=== PATIENT | male | born 1930 | race Caucasian/White ===

== ENCOUNTER 2016-06-20 17:59 | Emergency (ER) | payer OTHER, MEDICARE ==
[~2016-06-20] VITALS: Ht 172.7 cm; Wt 97.1 kg
[~2016-06-20 17:59] MED LIST: ALLOPURINOL; CRESTOR; DETROL LA; DOCUSATE; LASIX; LOVAZA; NEXIUM; NORCO; NOVALOG; OXYCONTIN
[2016-06-20 18:00] VITALS: BP 120/58; PULSE 67; RESP 17; TEMP 97.9; O2SAT 97
[2016-06-20] MEDS ORDERED: DIPH-TET-PERTUS Vaccine 0.5 ML VIAL (ADACEL) I.M. ONE (19:00)
[2016-06-20 20:45] VITALS: BP 120/58; PULSE 67; RESP 17; TEMP 97.9; O2SAT 97
[2016-11-18] MEDS ORDERED: CHOL2000 PO (11:34)
[2016-11-18] MEDS ORDERED: ESOM40CA PO (11:34)
[2016-11-18] MEDS ORDERED: FURO-149 PO (11:34)
[2016-11-18] MEDS ORDERED: POLY17PO4 PO (11:34)
[2016-11-18] MEDS ORDERED: ASCO-339 PO (11:34)
[2016-11-18] MEDS ORDERED: HYDR-2489 PO (11:34)
[2016-11-18] MEDS ORDERED: MULT-1165 PO (11:34)
[2016-11-18] MEDS ORDERED: OXYC10TA71 PO (11:34)
[2016-11-18] MEDS ORDERED: ASPI81TA2 PO (11:34)
[2016-11-18] MEDS ORDERED: ROSU5TAB3 PO (11:34)
[2016-11-18] MEDS ORDERED: INSNLG7030 SUBCUT (11:34)
[2016-11-18] MEDS ORDERED: VITA1CAP PO (11:34)
[2016-11-18] MEDS ORDERED: LIRA0.6P SQ (12:11)
[2016-11-18] MEDS ORDERED: DENO60DI SQ (12:11)
[2016-11-18] MEDS ORDERED: CALC0.258 PO (12:11)
== END 2016-06-20 20:45 | disposition home or self-care (01) ==
LOC: SED 17:59
DX: S61.411A Laceration without foreign body of right hand, initial encounter (principal); E11.9 Type 2 diabetes mellitus without complications; Z91.02 Food additives allergy status; W54.0XXA Bitten by dog, initial encounter; Y93.89 Activity, other specified; Y92.89 Other specified places as the place of occurrence of the external cause; Y99.8 Other external cause status
CPT/HCPCS: 82962; 90715; 99283

== ENCOUNTER 2016-07-27 14:28 | Emergency (ER) | payer OTHER, MEDICARE ==
[~2016-07-27] VITALS: Ht 172.7 cm; Wt 97.5 kg
[2016-07-27 14:40] VITALS: BP 127/71; PULSE 84; RESP 19; TEMP 97.7; O2SAT 94
--- NOTE | 2016-07-27 14:40 | NUR ---
Patient triaged and placed in waiting room. VSS and patient appears in no acute distress at this time. Accompanied by FAMILY, awaiting available bed, and MD notified of need for MSE.
[2016-07-27] MEDS ORDERED: ACETAMINOPHEN 500 MG TABLET PO ONE (16:30)
--- NOTE | 2016-07-27 16:40 | NUR ---
BROUGHT BACK TO BED #7 AND REPORT GIVEN TO DANNY
--- NOTE | 2016-07-27 16:42 | NUR ---
DR. HICKEY AT BEDSIDE EXAMININGTHE PT.
[2016-07-27] MEDS ORDERED: MORPHINE 4 MG/ML INJ. SYRINGE IM ONE (16:45)
--- NOTE | 2016-07-27 16:45 | NUR ---
PT. BROUGHT IN TO THE ER VIA WHEELCHAIR AAOx4 FOR MECHANICAL FALL, STATES THAT HE FELL 2 NIGHTS AGO AND HAS BEEN EXPERIENCING BACK PAIN AND PAIN IN HIS LEFT HAND STATES PAIN 02/24, NO OTHER COMPLAINTS, AT BEDSIDE
--- NOTE | 2016-07-27 17:15 | NUR ---
TAKEN TO RADIOLOGY VIA WHEELCHAIR
--- NOTE | 2016-07-27 17:30 | NUR ---
PT. BACK FROM RADIOLOGY VIA WHEELCHAIR
--- NOTE | 2016-07-27 18:33 | NUR ---
PT. SITTING IN HIS WHEELCHAIR COMFORTABLY, STATES NO PAIN
[2016-07-27 18:50] VITALS: BP 121/71; PULSE 66; RESP 17; TEMP 98.5
--- NOTE | 2016-07-27 18:50 | NUR ---
Patient given written and verbal discharge instructions and verbalizes understanding. ER MD dr. andrea discussed with patient the results and treatment provided. Patient in stable condition. ID arm band removed. no Rx given. Patient educated on pain management and to follow up with PMD. Pain Scale 0/10 Opportunity for questions provided and answered.
[2016-07-27 19:34] VITALS: O2SAT 99
--- NOTE | 2016-07-28 12:13 | NUR ---
DR IVY CALLED TO SPEAK WITH DR CEE, DR CEE ATTEMPTED TO CALL PT TWICE AND LEFT TWO MESSAGES FOR PT TO RETURN TO ER. AWAITING TO HEAR BACK FROM PT.
--- NOTE | 2016-07-28 17:31 | NUR ---
ATTEMPTED TO CALL AND LEFT MESSAGE ON ANSWERING MACHINE. [phone]
--- NOTE | 2016-07-28 19:05 | NUR ---
INFORMATION GIVEN TO ANABELLA FOR FOLLOW UP
--- NOTE | 2016-07-28 21:11 | NUR ---
Called [facility] department at [phone] to help us reach patient, spoke with Anabel. Requested her to call us back for any update.
--- NOTE | 2016-07-28 21:52 | NUR ---
[facility] department called back for further information and pt's update
--- NOTE | 2016-07-28 22:05 | NUR ---
Pt's family/ Liliam called back and was told to come back and discuss CT result with ER
[2016-11-18] MEDS ORDERED: CHOL2000 PO (11:34)
[2016-11-18] MEDS ORDERED: HYDR-2489 PO (11:34)
[2016-11-18] MEDS ORDERED: ESOM40CA PO (11:34)
[2016-11-18] MEDS ORDERED: ASCO-339 PO (11:34)
[2016-11-18] MEDS ORDERED: POLY17PO4 PO (11:34)
[2016-11-18] MEDS ORDERED: INSNLG7030 SUBCUT (11:34)
[2016-11-18] MEDS ORDERED: FURO-149 PO (11:34)
[2016-11-18] MEDS ORDERED: MULT-1165 PO (11:34)
[2016-11-18] MEDS ORDERED: OXYC10TA71 PO (11:34)
[2016-11-18] MEDS ORDERED: VITA1CAP PO (11:34)
[2016-11-18] MEDS ORDERED: ASPI81TA2 PO (11:34)
[2016-11-18] MEDS ORDERED: ROSU5TAB3 PO (11:34)
[2016-11-18] MEDS ORDERED: LIRA0.6P SQ (12:11)
[2016-11-18] MEDS ORDERED: CALC0.258 PO (12:11)
[2016-11-18] MEDS ORDERED: DENO60DI SQ (12:11)
== END 2016-07-27 18:50 | disposition home or self-care (01) ==
LOC: SED 14:28
DX: S39.012A Strain of muscle, fascia and tendon of lower back, initial encounter (principal); E11.9 Type 2 diabetes mellitus without complications; Y93.89 Activity, other specified; W01.0XXA Fall on same level from slipping, tripping and stumbling without subsequent striking against object, initial encounter; Y92.89 Other specified places as the place of occurrence of the external cause; Y99.8 Other external cause status; Z91.02 Food additives allergy status
CPT/HCPCS: 71250; 73140; 74176; 96372; 99284; J2270

== ENCOUNTER 2016-07-28 22:32 | Emergency (ER) | payer OTHER, MEDICARE ==
[~2016-07-28] VITALS: Ht 172.7 cm; Wt 97.5 kg
[2016-07-28 22:32] VITALS: BP_SYST 144
--- NOTE | 2016-07-28 22:40 | NUR ---
Patient to ER bed 6 to gown for evaluation. Side rails up. Report given to Lady ROMANO.
--- NOTE | 2016-07-28 22:44 | NUR ---
Patient returns to ER. Today patient was contacted by [facility] ER staff and ER MD to return to ER to discuss imaging results from 1 day ago. 3 days ago patient fell backwards injuring his back. At this time patient is using a walker, states that he is taking oxycontin for pain, C/O 5/10 pain at rest and 10/10 when walking. AAOx4, unlabored breathing, denies numbness/tingling of legs, no signs of acute distress.
--- NOTE | 2016-07-28 23:06 | NUR ---
ER MD Cruz at bedside for evaluation
[2016-07-28 23:10] VITALS: BP_SYST 134
--- NOTE | 2016-07-28 23:27 | NUR ---
Patient given written and verbal discharge instructions and verbalizes understanding. ER MD Cruz discussed with patient the results and treatment provided. Given copies of tests performed in ER. Patient in stable condition. ID arm band removed. Patient educated on pain management and to follow up with PMD. Pain Scale 0/10. Opportunity for questions provided and answered.
== END 2016-07-28 23:10 | disposition home or self-care (01) ==
LOC: SED 22:32
DX: S22.079A Unspecified fracture of T9-T10 vertebra, initial encounter for closed fracture (principal); E11.9 Type 2 diabetes mellitus without complications; Z91.02 Food additives allergy status; W01.0XXA Fall on same level from slipping, tripping and stumbling without subsequent striking against object, initial encounter; Y93.89 Activity, other specified; Y99.8 Other external cause status; Y92.89 Other specified places as the place of occurrence of the external cause
CPT/HCPCS: 99281

== ENCOUNTER 2016-12-27 07:48 | Emergency (ER) | payer OTHER, MEDICARE ==
[~2016-12-27] VITALS: Ht 172.7 cm; Wt 90.7 kg
[2016-12-27 07:48] VITALS: BP_SYST 145
[~2016-12-27 07:48] MED LIST changes: -ALLOPURINOL; +ASCO-339 PO; +ASPI81TA2 PO; +CALC0.258 PO; +CHOL2000 PO; -CRESTOR; +DENO60DI SQ; -DETROL LA; -DOCUSATE; +ESOM40CA PO; +HYDR-2489 PO; +INSNLG7030 SUBCUT; -LASIX; -LOVAZA; +MULT-1165 PO; -NEXIUM; -NORCO; -NOVALOG; +OXYC10TA71 PO; -OXYCONTIN; +POLY17PO4 PO; +ROSU5TAB3 PO; +VITA1CAP PO
[2016-12-27 08:41] LABS: BASOPHILS % (AUTO) 0.1 % (0.0-2.0); EOSINOPHILS # (AUTO) 0.1 K/uL (0.0-0.4); EOSINOPHILS % (AUTO) 0.6 % (0.0-4.0); HEMATOCRIT 36.5 % (36-54); HEMOGLOBIN 11.7 g/dL (14.0-18.0); LYMPHOCYTES % (AUTO) 12.2 % (20.5-51.5); MEAN CORPUSCULAR HEMOGLOBIN 30 pg (27-31); MEAN CORPUSCULAR HGB CONC 32 % (32-36); MEAN CORPUSCULAR VOLUME 93 fL (79.0-98.0); MONOCYTES # (AUTO) 0.5 K/uL (0.0-1.0); MONOCYTES % (AUTO) 5.5 % (1.7-9.3); NEUTROPHILS # (AUTO) 6.8 K/uL (1.8-7.7); NEUTROPHILS % (AUTO) 81.6 % (40.0-70.0); PLATELET COUNT (AUTO) 164 K/uL (130-430); RED BLOOD CELL COUNT(AUTO) 3.91 MIL/uL (4.2-6.2); RED CELL DISTRIBUTION WIDTH 14.7 % (9.0-15.0); WHITE BLOOD COUNT (AUTO) 8.4 K/uL (4.8-10.8)
[2016-12-27 08:53] LABS: ANION GAP 5 (5-15); CALCIUM 8.8 mg/dL (8.4-11.0); CHLORIDE 104 mmol/L (98-107); CREATININE 2.27 mg/dL (0.55-1.30); GLUCOSE 90 mg/dL (70-99); POTASSIUM 4.3 mmol/L (3.5-5.1); SODIUM SERUM 144 mmol/L (136-145); UREA NITROGEN, BLOOD 29 mg/dL (8-21)
[2016-12-27 08:55] LABS: PROTHROMBIN TIME 10.4 SECS (9.5-12.5)
[2016-12-27 09:09] LABS: ALANINE AMINOTRANSFERASE 18 U/L (12-78); ALBUMIN 3.3 g/dL (3.4-4.8); ASPARTATE AMINOTRANSFERASE 18 U/L (10-37); FREE T4 (FREE THYROXINE) 0.8 ng/dL (0.6-1.6); TOTAL BILIRUBIN 0.4 mg/dL (0.0-1.0); TOTAL PROTEIN, SERUM 6.5 g/dL (6.4-8.3)
[2016-12-27] MEDS ORDERED: CYAN100067 PO (09:10)
[2016-12-27] MEDS ORDERED: MULT PO (09:10)
[2016-12-27] MEDS ORDERED: FURO-149 PO (09:10)
[2016-12-27] MEDS ORDERED: CLON0.5T4 PO (09:10)
[2016-12-27] MEDS ORDERED: VITD2000 PO (09:10)
[2016-12-27] MEDS ORDERED: MELA3TAB43 PO (09:10)
[2016-12-27] MEDS ORDERED: DENO60DI SQ (09:10)
[2016-12-27] MEDS ORDERED: LIDP TP (09:10)
[2016-12-27] MEDS ORDERED: ASCO500T20 PO (09:10)
[2016-12-27] MEDS ORDERED: POLY17PO4 PO (09:10)
[2016-12-27] MEDS ORDERED: LIRA0.6P SQ (09:10)
[2016-12-27 09:22] LABS: ALCOHOL, BLOOD < 3 mg/dL (<10)
[2016-12-27 09:45] LABS: BILIRUBIN,URINE NEGATIVE (NEGATIVE); BLOOD, URINE NEGATIVE (NEGATIVE); CLARITY/URINE CLEAR (CLEAR); COLOR,URINE YELLOW (YELLOW); GLUCOSE,URINE NEGATIVE (NEGATIVE); KETONES,URINE NEGATIVE (NEGATIVE); LEUKOCYTE ESTERASE ,URINE NEGATIVE (NEGATIVE); NITRITE, URINE NEGATIVE (NEGATIVE); PH,URINE 6.5 (5.0-8.0); PROTEIN URINE 1+ (NEGATIVE); UROBILINOGEN,URINE 0.2 (0.2-1.0)
[2016-12-27 09:55] LABS: BARBITURATE, URINE NEGATIVE (NEG <=200); BENZODIAZEPINE, URINE NEGATIVE (NEG <=150); CANNABINOID, URINE NEGATIVE (NEG <=50); COCAINE, URINE NEGATIVE (NEG <=150); METHAMPHETAMINES SCREEN,URINE NEGATIVE (NEG <=500); OPIATE, URINE POSITIVE (NEG <=100); PHENCYCLIDINE SCREEN,URINE NEGATIVE (NEG <=25); UR TRICYCLIC ANTIDEPRESSANTS NEGATIVE (NEG <=300); URINE AMPHETAMINE NEGATIVE (NEG <=500); URINE METHADONE NEGATIVE (NEG <=200); URINE OXYCODONE SCREEN POSITIVE (NEG <=100); URINE PROPOXYPHENE SCREEN NEGATIVE (NEG <=300)
[2016-12-27 10:09] LABS: BACTERIA,URINE RARE /HPF (None Seen); FINE GRANULAR CASTS,URINE 0-10 /LPF (None Seen); RBC,URINE NONE SEEN /HPF (0-3); WBC,URINE NONE SEEN /HPF (0-3)
[2016-12-27 10:10] LABS: MUCUS,URINE None Seen /LPF (None Seen)
[2016-12-27 11:14] VITALS: BP_SYST 137
[2016-12-27] MEDS ORDERED: INSULIN REGULAR, HUMAN 10 UNITS/0.1 ML INJ ONE (16:32)
== END 2016-12-27 11:14 | disposition home or self-care (01) ==
LOC: SED 07:48
DX: E11.649 Type 2 diabetes mellitus with hypoglycemia without coma (principal); J44.9 Chronic obstructive pulmonary disease, unspecified; Z85.828 Personal history of other malignant neoplasm of skin; Z91.041 Radiographic dye allergy status; Z79.4 Long term (current) use of insulin; Z79.899 Other long term (current) drug therapy
CPT/HCPCS: 36415; 71010; 74000; 80053; 80307; 81000; 82140; 83605; 83880; 84439; 84484; 85025; 85610; 87040; 93005; 99285; G0482; J1815; 82962

== ENCOUNTER 2018-03-26 14:51 | Emergency (ER) | payer OTHER, MEDICARE ==
[~2018-03-26] VITALS: Ht 157.5 cm; Wt 95.7 kg
[~2018-03-26 14:51] MED LIST changes: -ASCO-339 PO; +ASCO500T20 PO; +ASPI-1155 PO; -ASPI81TA2 PO; -CHOL2000 PO; +CLON0.5T12 PO; +CYAN100010 PO; +FURO-149 PO; +LIDP TP; +LIRA0.6P SQ; +MELA3TAB69 PO; +MULT PO; +OXYC10TA56 PO; -OXYC10TA71 PO; +ROSU5TAB PO; -ROSU5TAB3 PO; +VITD2000 PO
--- NOTE | 2018-03-26 14:55 | NUR ---
Pt wheeled to bed 5
[2018-03-26 14:56] VITALS: BP_SYST 150
--- NOTE | 2018-03-26 15:05 | NUR ---
Patient brought via wheelchair accompanied by complaining of an bump on left scrotum for the alst 2 years that now has worsened. Reports that the bump was draining pus. Denies any fevers or chills. Denies any pain at this time. No complaints/injuries per patient or as noted. Will continue to monitor.
--- NOTE | 2018-03-26 15:17 | NUR ---
ER Dr. Quan at bedside examining patient.
[2018-03-26] MEDS ORDERED: ROSU10TA PO (15:18)
[2018-03-26] MEDS ORDERED: [UNRECOGNIZED DRUG - REMARK] (15:18)
[2018-03-26] MEDS ORDERED: Vit D PO (15:18)
[2018-03-26] MEDS ORDERED: MULT-1198 PO (15:18)
[2018-03-26] MEDS ORDERED: DENO60DI SQ (15:18)
[2018-03-26] MEDS ORDERED: INSNLG7030 SUBCUT ×2 (15:18)
[2018-03-26] MEDS ORDERED: Vit C (15:18)
[2018-03-26] MEDS ORDERED: ESOM40CA PO (15:18)
--- NOTE | 2018-03-26 15:29 | NUR ---
Medicated per MD orders. Will cont to monitor
[2018-03-26] MEDS ORDERED: CLINDAMYCIN PHOSPHATE 300 MG/2 ML VIAL IM ONE (15:30)
[2018-03-26 15:55] VITALS: BP_SYST 142
--- NOTE | 2018-03-26 15:55 | NUR ---
Patient given written and verbal discharge instructions and verbalizes understanding. ER MD discussed with patient the results and treatment provided. Patient in stable condition. ID arm band removed. Rx of Clindamycin given. Patient educated on pain management and to follow up with PMD. Pain Scale 0/10 Opportunity for questions provided and answered. Medication side effect fact sheet provided.
== END 2018-03-26 15:55 | disposition home or self-care (01) ==
LOC: SED 14:51
DX: N45.4 Abscess of epididymis or testis (principal); R03.0 Elevated blood-pressure reading, without diagnosis of hypertension; E11.9 Type 2 diabetes mellitus without complications; Z85.828 Personal history of other malignant neoplasm of skin; Z85.528 Personal history of other malignant neoplasm of kidney; Z91.041 Radiographic dye allergy status; Z79.82 Long term (current) use of aspirin; Z79.899 Other long term (current) drug therapy
CPT/HCPCS: 96372; 99283; J3490

== ENCOUNTER 2019-05-09 12:30 | Inpatient (IN) | payer OTHER, MEDICARE ==
[~2019-05-09] VITALS: Ht 175.3 cm; Wt 88.8 kg
[~2019-05-09 12:30] MED LIST changes: -ASCO500T20 PO; -CLON0.5T12 PO; +ETOMIDATE 20 MG/ 10 ML VIAL (AMIDATE) IVP ONE; -HYDR-2489 PO; +HYDR-4274 PO; -MELA3TAB69 PO; -MULT PO; -MULT-1165 PO; +MULT-1198 PO; +ROSU10TA2 PO; -VITA1CAP PO; -VITD2000 PO; +Vit C; +Vit D PO; +[UNRECOGNIZED DRUG - REMARK]
[2019-05-09 12:42] VITALS: BP_SYST 149
--- NOTE | 2019-05-09 12:54 | NUR ---
Patient to ER bed 05 to gown for evaluation. Side rails up.
--- NOTE | 2019-05-09 12:55 | NUR ---
Patient is awake, alert, and oriented x4. His is at bedside. Patient is reports falling out of his bed last night. Patient presents with abrasions to his right leg, right elbow, right sided pain, ronchi bilaterally.
[2019-05-09] MEDS ORDERED: POLY17PO4 PO (13:14)
[2019-05-09] MEDS ORDERED: DENO60DI SQ (13:14)
[2019-05-09] MEDS ORDERED: LIDOINT TP (13:14)
[2019-05-09] MEDS ORDERED: NALO12.5 PO (13:14)
[2019-05-09] MEDS ORDERED: INSNLG7030 SUBCUT ×2 (13:14)
[2019-05-09] MEDS ORDERED: VITD2000 PO (13:14)
[2019-05-09] MEDS ORDERED: LIRA0.6P SQ (13:14)
[2019-05-09] MEDS ORDERED: MULT-1198 PO (13:14)
[2019-05-09] MEDS ORDERED: HYDR-4274 PO (13:14)
[2019-05-09] MEDS ORDERED: ASCO500T20 PO (13:14)
[2019-05-09] MEDS ORDERED: FLOEARD LEFT EYE (13:14)
[2019-05-09] MEDS ORDERED: CANN100S PO (13:14)
[2019-05-09] MEDS ORDERED: ASPI-1153 PO (13:14)
[2019-05-09] MEDS ORDERED: FURO-149 PO (13:14)
[2019-05-09] MEDS ORDERED: ESOM40CA PO (13:14)
[2019-05-09] MEDS ORDERED: OXYC10TA56 PO (13:14)
[2019-05-09] MEDS ORDERED: CYAN100010 PO (13:14)
[2019-05-09] MEDS ORDERED: CALC0.253 PO (13:14)
[2019-05-09] MEDS ORDERED: ROSU10TA2 PO (13:14)
[2019-05-09] MEDS ORDERED: [UNRECOGNIZED DRUG - OTHER] PO (13:14)
--- NOTE | 2019-05-09 13:14 | NUR ---
Medication reconciliation completed with information provided by patient. Any prior medication reconciliation on file was reviewed and corrected.
[2019-05-09 14:00] LABS: ANION GAP 5 (5-15); CALCIUM 8.6 mg/dL (8.4-11.0); CHLORIDE 101 mmol/L (98-107); CREATININE 2.51 mg/dL (0.55-1.30); GLUCOSE 154 mg/dL (70-99); POTASSIUM 4.2 mmol/L (3.5-5.1); SODIUM SERUM 140 mmol/L (136-145); UREA NITROGEN, BLOOD 36 mg/dL (8-21)
[2019-05-09 14:04] LABS: BASOPHILS % (AUTO) 0.2 % (0.0-2.0); EOSINOPHILS # (AUTO) 0.1 K/uL (0.0-0.4); EOSINOPHILS % (AUTO) 0.4 % (0.0-4.0); HEMATOCRIT 39.4 % (36-54); HEMOGLOBIN 12.7 g/dL (14.0-18.0); LYMPHOCYTES # (AUTO) 1.6 K/uL (1.0-5.5); LYMPHOCYTES % (AUTO) 12.3 % (20.5-51.5); MEAN CORPUSCULAR HEMOGLOBIN 32 pg (27-31); MEAN CORPUSCULAR HGB CONC 32 % (32-36); MEAN CORPUSCULAR VOLUME 99 fL (79.0-98.0); MONOCYTES # (AUTO) 1.4 K/uL (0.0-1.0); NEUTROPHILS # (AUTO) 9.6 K/uL (1.8-7.7); PLATELET COUNT (AUTO) 220 K/uL (130-430); RED BLOOD CELL COUNT(AUTO) 3.98 MIL/uL (4.2-6.2); RED CELL DISTRIBUTION WIDTH 13.6 % (9.0-15.0); WHITE BLOOD COUNT (AUTO) 12.7 K/uL (4.8-10.8)
[2019-05-09 14:07] LABS: ALANINE AMINOTRANSFERASE 20 U/L (12-78); ALBUMIN 2.7 g/dL (3.4-4.8); ASPARTATE AMINOTRANSFERASE 16 U/L (10-37); LIPASE 221 U/L (73-393); TOTAL BILIRUBIN 0.3 mg/dL (0.0-1.0)
[2019-05-09] MEDS ORDERED: OSELTAMIVIR PHOSPHATE 75 MG CAPSULE PO ONE (14:30)
[2019-05-09] MEDS ORDERED: AZITHROMYCIN 250 MG TABLET PO ONE (14:30)
[2019-05-09] MEDS ORDERED: cefTRIAXone 1 GM IVPB PREMIX 50 ML IV ONE (14:30)
--- NOTE | 2019-05-09 14:47 | NUR ---
Waiting for second blood culture to be drawn prior to IV antibiotic administration.
--- NOTE | 2019-05-09 14:54 | NUR ---
Patient will be admitted to care of Dr. Briggs. Admitted to telemetry unit. Waiting for room assignment from ROSALINA Maldonado. Belongings list completed. Complete and up to date summary report printed. SBAR report to be given at bedside with opportunity for questions.
--- NOTE | 2019-05-09 14:55 | NUR ---
Patient is respiratory distress, patient placed on NRB Mask at 15LPM. Dr. Coates notified.
[2019-05-09] MEDS ORDERED: ETOMIDATE 20 MG/ 10 ML VIAL (AMIDATE) IVP ONE (15:15)
[2019-05-09] MEDS ORDERED: ROCURONIUM BROMIDE 10 MG/ML (ZEMURON) IV ONE (15:15)
--- NOTE | 2019-05-09 15:16 | NUR ---
Pt moved to bed 01
--- NOTE | 2019-05-09 15:35 | NUR ---
T NOTES Pt was intubated w/ 8.0 ETT secured at 24cm lipline. Bilateral B.S/chest rise noted. CO2 detector changed to yellow. Placed on vent AC 13 500 100% +[address] Coates. Pt. appears to tolerate settings well. Alarms are set and audible. Will monitor pt.
--- NOTE | 2019-05-09 15:35 | NUR ---
Patient not known to be of DNR status. Patient medicated with 20 mg of Etomidate for sedation prior to placement of ET tube and 50mg roconium. Respiratory therapy at bedside prior to placement. Size 8 ET tube placed by 24 at [facility] by Dr. Coates. Cuff inflated with 10 cc air. Auscultation of breath sounds over bilateral chest wall. ET tube secured with strap. O2 sats 100% pulse ox. PCXR ordered to check tube placement.
--- NOTE | 2019-05-09 15:43 | NUR ---
Patient will be admitted to care of Dr. Briggs. Admitted to ICU unit. Waiting for room assignment. Belongings list completed. Complete and up to date summary report printed. SBAR report to be given at bedside with opportunity for questions.
[2019-05-09] MEDS ORDERED: AZITHROMYCIN 500 MG in NS 250 ML IV ONE (15:45)
[2019-05-09] MEDS: PROPOFOL DRIP 100 ML IV PRN (15:58)
[2019-05-09] MEDS ORDERED: SODIUM CL 3% FOR INHALATION 15 ML VIAL.NEB INH ONE (16:00)
--- NOTE | 2019-05-09 16:05 | NUR ---
Diprivan titrated to 7mcg/kg/hr. ROSALINA Felder witnessed.
--- NOTE | 2019-05-09 16:10 | NUR ---
Diprivan titrated to 9mcg/kg/hr. ROSALINA Felder witnessed.
--- NOTE | 2019-05-09 16:10 | NUR ---
RT NOTEs RT Gianluca titrated FIO2 to 50% per ABG results
[2019-05-09] MEDS ORDERED: AZITHROMYCIN 500 MG/VIAL (ZITHROMAX) IV ONE (16:15)
--- NOTE | 2019-05-09 16:15 | NUR ---
Diprivan titrated to 11mcg/kg/hr. ROSALINA Felder witnessed.
--- NOTE | 2019-05-09 16:20 | NUR ---
Diprivan titrated to 13mcg/kg/hr. ROSALINA Felder witnessed.
--- NOTE | 2019-05-09 16:25 | NUR ---
Diprivan titrated to 15mcg/kg/hr. ROSALINA Felder witnessed.
--- NOTE | 2019-05-09 16:28 | NUR ---
Patient transported to radiology via gurney, accompanied by forestry technician, RN, RT.
[2019-05-09 16:32] LABS: BILIRUBIN,URINE NEGATIVE (NEGATIVE); BLOOD, URINE NEGATIVE (NEGATIVE); COLOR,URINE YELLOW (YELLOW); GLUCOSE,URINE NEGATIVE (NEGATIVE); KETONES,URINE NEGATIVE (NEGATIVE); LEUKOCYTE ESTERASE ,URINE NEGATIVE (NEGATIVE); NITRITE, URINE NEGATIVE (NEGATIVE); PROTEIN URINE 2+ (NEGATIVE); UROBILINOGEN,URINE 0.2 (0.2-1.0)
--- NOTE | 2019-05-09 16:40 | NUR ---
RT NOTES Transported pt to CT bagging w/ 100% O2 via ambubag to ETT. ETT remains secure. Pt. back on vent w/ same settings.
--- NOTE | 2019-05-09 16:42 | NUR ---
Returned from radiology, back to [facility].
--- NOTE | 2019-05-09 16:45 | NUR ---
Diprivan titrated to 17mcg/kg/hr. ROSALINA Felder witnessed.
[2019-05-09 16:46] LABS: CLARITY/URINE SLIGHTLY HAZY (CLEAR)
--- NOTE | 2019-05-09 16:50 | NUR ---
Diprivan titrated to 19mcg/kg/hr. ROSALINA Felder witnessed.
--- NOTE | 2019-05-09 16:55 | NUR ---
Diprivan titrated to 21mcg/kg/hr. ROSALINA Felder witnessed.
--- NOTE | 2019-05-09 17:00 | NUR ---
Diprivan titrated to 23mcg/kg/hr. ROSALINA Felder witnessed.
[2019-05-09 17:02] LABS: BACTERIA,URINE FEW /HPF (None Seen); COARSE GRANULAR CASTS,URINE 0-10 /LPF (None Seen); FINE GRANULAR CASTS,URINE 0-10 /LPF (None Seen); MUCUS,URINE 1+ /LPF (None Seen); RBC,URINE NONE SEEN /HPF (0-3); WBC,URINE 0-3 /HPF (0-3)
--- NOTE | 2019-05-09 17:05 | NUR ---
Diprivan titrated to 26mcg/kg/hr. ROSALINA Felder witnessed.
--- NOTE | 2019-05-09 17:10 | NUR ---
Diprivan titrated to 30mcg/kg/hr. ROSALINA Felder witnessed.
[2019-05-09 17:26] LABS: NEUTROPHILS % (AUTO) 76.1 % (40.0-70.0)
[2019-05-09] MEDS ORDERED: D5W 1,000 ML IV PRN (17:49)
--- NOTE | 2019-05-09 17:55 | NUR ---
Diprivan titrated to 35mcg/kg/min, ROSALINA Felder witnessed.
--- NOTE | 2019-05-09 17:58 | NUR ---
Patient's , Liliam, wishes to be called at with updates if she is not at bedside.
[2019-05-09] MEDS ORDERED: ONDANSETRON HCL 4 MG/2 ML VIAL IVP PRN (18:00)
[2019-05-09] MEDS ORDERED: GLUCOSE 15 GM GEL (in 37.5 GM TUBE) PO PRN (18:00)
[2019-05-09] MEDS ORDERED: LORazepam 2 MG/ML VIAL IVP PRN (18:00)
[2019-05-09] MEDS ORDERED: NOREPINEPHRINE BITARTRATE 4 MG in NS 246 ML IV PRN (18:15)
--- NOTE | 2019-05-09 18:25 | NUR ---
Levophed 4mg/250mL NS started at 2mcg/min due to low bp.
[2019-05-09] MEDS ORDERED: NOREPINEPHRINE 4 MG/4 ML VIAL IV ONE (18:29)
--- NOTE | 2019-05-09 18:30 | NUR ---
Levophed increased to 4mcg/min. ROSALINA Felder witnessed.
--- NOTE | 2019-05-09 18:55 | NUR ---
Dr. Beal, licensed surveyor, in to see patient.
--- NOTE | 2019-05-09 19:34 | NUR ---
Report given to ROSALINA Menezes for continuation of care.
--- NOTE | 2019-05-09 19:45 | NUR ---
# 16 FR NG tube placed to RTnare. Placement checked by auscultation of instilled air into stomach and aspiration of gastric contents. Tubing taped in place to prevent dislodging. Patient tolerated well
--- NOTE | 2019-05-09 21:02 | NUR ---
, Liliam, dropped off patient's Advance directive which states " I do not want my life to be prolonged if (1) I have an incurable and irreversible condition that will results in my within a relatively short time, or (2) I become unconscious and, to a reasonable degree of medical certainty, I will not regain consciousness, or (3) the likely risks and burdens of treatment would outweigh the expected benefits." Patient will be placed as full code after discussing with Dr. Good
--- NOTE | 2019-05-09 22:50 | NUR ---
Patient attempting to pull lines.Diprivan increased. Diprivan titrated to 40mcg/kg/min, ROSALINA Menezes witnessed.
--- NOTE | 2019-05-09 23:03 | NUR ---
RT at bedside for suctioning.
[2019-05-10] VITALS (32 sets, daily range): BP systolic 97–158
--- NOTE | 2019-05-10 00:02 | NUR ---
Patient resting quietly. No acute distress noted.
[2019-05-10] MEDS: D5/0.45 NS 1,000 ML IV SCH ×3 (00:19→17:27)
--- NOTE | 2019-05-10 00:19 | NUR ---
Medicated per MD orders. IVF infusing with no s/s of infiltration at this time. Will cont to monitor
--- NOTE | 2019-05-10 00:25 | NUR ---
accucheck 144. No insulin coverage needed at this time. Will continue to monitor.
[2019-05-10] MEDS: IPRATROPIUM/ALBUTEROL SULFATE 3 ML AMPUL.NEB (DUONEB) INH SCH ×4 (00:34→21:30)
--- NOTE | 2019-05-10 00:35 | NUR ---
# 16 FR Naqvi catheter with use of sterile technique. Immediate return of 350 cc clear yellow urine noted. Bedside drainage bag placed below level of bladder. Pt tolerated procedure well
--- NOTE | 2019-05-10 00:40 | NUR ---
Patient placed in position of comfort. No acute distress noted at this time
--- NOTE | 2019-05-10 01:45 | NUR ---
BP now 182/57 HR 62 RR 13 O2 Saturation 98%. Levophed tapered down to 2 mcg/min. Will reassess in 10 mins
--- NOTE | 2019-05-10 02:00 | NUR ---
BP 163/55 HR 68 RR15 O2 99%. Will continue to monitor.
--- NOTE | 2019-05-10 02:17 | NUR ---
BP now 115/62, HR 64, RR14 O2 98%. Will continue Levophed at 2mcg/min.
--- NOTE | 2019-05-10 02:34 | NUR ---
Transfer to ICU 7 via ACLS protocol. Licensed nurse present. IV present no signs or symptoms of infiltration.
--- NOTE | 2019-05-10 03:15 | NUR ---
[facility] titrated diprivan from 40 mcg/min to 45 mcg/min.
[2019-05-10] MEDS: PROPOFOL DRIP 100 ML IV PRN ×5 (03:33→22:02)
[2019-05-10] MEDS: INSULIN REGULAR, HUMAN 100 UNITS/ML, 10 ML VIAL (humuLIN R) SUBCUT PRN ×2 (03:45→07:00)
--- NOTE | 2019-05-10 05:43 | NUR ---
CONSULT-DR. WILLIAM ROLDAN LOCOMOTIVE CRANE ENGINEER [phone] SPOKE TO YASHIRA
--- NOTE | 2019-05-10 05:45 | NUR ---
CONSULT-DR. LAINEZ [phone] SPOKE TO YASHIRA
--- NOTE | 2019-05-10 05:46 | NUR ---
CONSULT-DR. RIOJAS [facility] [phone] SPOKE WITH NABIL
[2019-05-10 06:56] LABS: HEMATOCRIT 34.9 % (36-54); HEMOGLOBIN 11.2 g/dL (14.0-18.0); MEAN CORPUSCULAR HEMOGLOBIN 32 pg (27-31); MEAN CORPUSCULAR HGB CONC 32 % (32-36); MEAN CORPUSCULAR VOLUME 99 fL (79.0-98.0); PLATELET COUNT (AUTO) 182 K/uL (130-430); RED BLOOD CELL COUNT(AUTO) 3.53 MIL/uL (4.2-6.2); RED CELL DISTRIBUTION WIDTH 13.6 % (9.0-15.0); WHITE BLOOD COUNT (AUTO) 11.1 K/uL (4.8-10.8)
--- NOTE | 2019-05-10 07:00 | NUR ---
closing note reoport given to incoming day shift nurse Kaur ROMANO using SBAR communication tool.
[2019-05-10 07:05] LABS: ALANINE AMINOTRANSFERASE 20 U/L (12-78); ALBUMIN 2.2 g/dL (3.4-4.8); ANION GAP 1 (5-15); ASPARTATE AMINOTRANSFERASE 16 U/L (10-37); CALCIUM 7.7 mg/dL (8.4-11.0); CHLORIDE 102 mmol/L (98-107); CREATININE 2.57 mg/dL (0.55-1.30); GLUCOSE 183 mg/dL (70-99); PHOSPHORUS 2.2 mg/dL (2.7-4.5); POTASSIUM 3.7 mmol/L (3.5-5.1); SODIUM SERUM 135 mmol/L (136-145); TOTAL BILIRUBIN 0.4 mg/dL (0.0-1.0); UREA NITROGEN, BLOOD 32 mg/dL (8-21)
--- NOTE | 2019-05-10 07:15 | NUR ---
AM ASSESSMENT Pt received from night RN using SBAR. Pt resting in bed with eyes closed. No signs of acute distress, will continue to monitor.
[2019-05-10] MEDS: FUROSEMIDE 40 MG/4 ML VIAL IVP SCH (08:01)
--- NOTE | 2019-05-10 08:01 | NUR ---
Oral Care Oral care provided to pt, pt tolerated well.
[2019-05-10] MEDS: INSULIN NPH/REGULAR 70-30, 100 UNITS/ML, 10 ML VIAL SUBCUT SCH ×2 (08:04→18:00)
[2019-05-10 08:05] LABS: ATYPICAL LYMPHOCYTES % 2 % (0-0); BAND % (MANUAL) 0 % (0-6); EOSINOPHILS % (MANUAL) 1 % (0-7); LYMPHOCYTES % (MANUAL) 15 % (20-46); MONOCYTES % (MANUAL) 10 % (0-11)
[2019-05-10 08:06] LABS: BASOPHILS % (MANUAL) 0 % (0-2)
--- NOTE | 2019-05-10 08:10 | NUR ---
ECHO p 3 armament/ordnance ima technician at bedside with pt
[2019-05-10] MEDS: PANTOPRAZOLE SODIUM 40 MG TAB PO SCH (08:13)
[2019-05-10] MEDS: Liraglutide (Victoza 2-Pak) 1.8 MG SUBCUT SCH (09:00)
[2019-05-10] MEDS: cefTRIAXone 1 GM in D5W 50 ML IV SCH (09:52)
--- NOTE | 2019-05-10 10:00 | NUR ---
RT NOTES Per Dr Marquez's order, pushed ETT 1cm down, secured at 25cm lipline. Bilateral b.s sounds/chest rise noted. No adverse reactions noted. Sxn oropharynx, sxn moderate amount of blood tinged secretions via ETT before cuff deflation/manipulation. RN made aware of blood in secretions.
--- NOTE | 2019-05-10 10:14 | NUR ---
Nutrition Update Dimitris Scale 14 noted. Pt admitted for CHF, pneumonia. Diet: NPO BMI: 28.6 kg/m2 RD to follow per nutrition care standards.
[2019-05-10] MEDS: AZITHROMYCIN 500 MG in NS 250 ML IV SCH (10:23)
[2019-05-10] MEDS: DEXTROSE 50% JECT 50 ML DISP.SYRIN IVP PRN ×2 (12:03→18:29)
--- NOTE | 2019-05-10 12:09 | NUR ---
Oral Care Oral care provided to pt, pt tolerated well.
[2019-05-10] MEDS: metroNIDAZOLE 250 mg/NS 50 ML IV SCH ×2 (14:33→22:03)
--- NOTE | 2019-05-10 16:06 | NUR ---
Oral Care Pt provided oral care, pt tolerated well.
--- NOTE | 2019-05-10 18:37 | NUR ---
Resting Pts resting with eyes closed. Pts is at bedside.
--- NOTE | 2019-05-10 18:48 | NUR ---
MD BHAKTA- Lainey RAYMOND [phone] SPOKE WITH JOSEPH
--- NOTE | 2019-05-10 19:00 | NUR ---
CONSULT-DR. BERTRAND RENAL FAILURE [phone] SPOKE WITH IFRAH
--- NOTE | 2019-05-10 19:25 | NUR ---
PM SHIFT ASSESSMENT Pt is sedated on diprivan. Pt is also on the vent, tolerating current vent settings. SR noted on monitor. at bedside. Naqvi catheter in place and draining to gravity. IVF infusing. Safety precautions in place, call light within reach. Will continue to monitor.
--- NOTE | 2019-05-10 19:30 | NUR ---
Closing Notes Pt endorsed to night RN using SBAR.
[2019-05-10] MEDS: MORPHINE 2 MG/ML INJ. SYRINGE IVP PRN (22:04)
[2019-05-10] MEDS ORDERED: PROPOFOL DRIP 100 ML IV ONE (22:09)
[2019-05-11] VITALS (31 sets, daily range): BP systolic 93–157
[2019-05-11] MEDS: PROPOFOL DRIP 100 ML IV PRN ×4 (01:31→19:41)
[2019-05-11] MEDS ORDERED: PROPOFOL DRIP 100 ML IV ONE ×2 (01:40→06:37)
[2019-05-11] MEDS: MORPHINE 4 MG/ML INJ. SYRINGE IVP PRN (02:41)
[2019-05-11] MEDS: D5/0.45 NS 1,000 ML IV SCH ×2 (02:42→13:18)
--- NOTE | 2019-05-11 03:00 | NUR ---
CHG BATH GIVEN. PT TOLERATED CARE WELL.
[2019-05-11] MEDS: metroNIDAZOLE 250 mg/NS 50 ML IV SCH ×3 (06:08→22:18)
[2019-05-11 06:34] LABS: BASOPHILS % (AUTO) 0.1 % (0.0-2.0); EOSINOPHILS # (AUTO) 0.2 K/uL (0.0-0.4); EOSINOPHILS % (AUTO) 2.7 % (0.0-4.0); HEMATOCRIT 33.6 % (36-54); HEMOGLOBIN 11.3 g/dL (14.0-18.0); LYMPHOCYTES # (AUTO) 1.4 K/uL (1.0-5.5); LYMPHOCYTES % (AUTO) 16.6 % (20.5-51.5); MEAN CORPUSCULAR HEMOGLOBIN 33 pg (27-31); MEAN CORPUSCULAR HGB CONC 34 % (32-36); MEAN CORPUSCULAR VOLUME 97 fL (79.0-98.0); MONOCYTES # (AUTO) 0.8 K/uL (0.0-1.0); NEUTROPHILS # (AUTO) 6.2 K/uL (1.8-7.7); NEUTROPHILS % (AUTO) 71.6 % (40.0-70.0); PLATELET COUNT (AUTO) 185 K/uL (130-430); RED BLOOD CELL COUNT(AUTO) 3.45 MIL/uL (4.2-6.2); RED CELL DISTRIBUTION WIDTH 13.9 % (9.0-15.0); WHITE BLOOD COUNT (AUTO) 8.7 K/uL (4.8-10.8)
[2019-05-11 07:44] LABS: ERYTHROCYTE SEDIMENTATION RATE 73 MM/HR (0-15)
--- NOTE | 2019-05-11 07:45 | NUR ---
ENDORSEMENT Pt care endorsed to dayshift RN using nursing SBAR.
[2019-05-11] MEDS: Liraglutide (Victoza 2-Pak) 1.8 MG SUBCUT SCH (09:00)
[2019-05-11] MEDS: IPRATROPIUM/ALBUTEROL SULFATE 3 ML AMPUL.NEB (DUONEB) INH SCH ×3 (09:13→21:02)
[2019-05-11] MEDS: cefTRIAXone 1 GM in D5W 50 ML IV SCH (09:37)
[2019-05-11] MEDS: FUROSEMIDE 40 MG/4 ML VIAL IVP SCH (09:39)
[2019-05-11] MEDS: PANTOPRAZOLE SODIUM 40 MG TAB PO SCH (09:40)
[2019-05-11] MEDS: INSULIN NPH/REGULAR 70-30, 100 UNITS/ML, 10 ML VIAL SUBCUT SCH ×2 (10:14→18:00)
[2019-05-11 10:25] LABS: ALANINE AMINOTRANSFERASE 13 U/L (12-78); ALBUMIN 2.1 g/dL (3.4-4.8); ANION GAP 7 (5-15); ASPARTATE AMINOTRANSFERASE 18 U/L (10-37); CALCIUM 7.5 mg/dL (8.4-11.0); CHLORIDE 103 mmol/L (98-107); CREATININE 2.49 mg/dL (0.55-1.30); GLUCOSE 164 mg/dL (70-99); PHOSPHORUS 2.7 mg/dL (2.7-4.5); POTASSIUM 3.1 mmol/L (3.5-5.1); SODIUM SERUM 140 mmol/L (136-145); TOTAL BILIRUBIN 0.4 mg/dL (0.0-1.0); UREA NITROGEN, BLOOD 26 mg/dL (8-21)
[2019-05-11] MEDS: AZITHROMYCIN 500 MG in NS 250 ML IV SCH (10:26)
[2019-05-11 10:53] LABS: C-REACTIVE PROTEIN QUANT 5.2 mg/dL (0-0.5)
--- NOTE | 2019-05-11 11:07 | NUR ---
1030 CHANGED VENT SETTINGS TO SIMV 10, VT 500, PS 12, PEEP +5 PER MD ROLDAN. ROSALINA MORIN LOWERED SEDATION. WILL CONTINUE TO MONITOR PT.
[2019-05-11] MEDS ORDERED: POTASSIUM CHLORIDE 40 MEQ, LIDOCAINE JECT 2% PF 100 MG 75 MG in NS 250 ML IV ONE (11:15)
[2019-05-11] MEDS: KCL 40 mEq in D5W 1000 mL 1,000 ML IV SCH (13:30)
--- NOTE | 2019-05-11 19:30 | NUR ---
PM ASSESSMENT REPORT RECEIVED FROM AM RN. PT RECEIVED IN BED WITH EYES CLOSED, RESPONDING TO TACTILE STIMULATION. PT IS SEDATED. VSS, NO S/S OF ACUTE DISTRESS NOTED. PT INTUBATED, VENT SETTINGS: SIMV 10, TV 500, FIO2 40%, PEEP 5, PS 12. SR ON MONITOR. LUNA PICC IN PLACE TO SL. RFA 20G AND LFA 20G INFUSING D5W + 40 MEQ KCL @ 100 CC/HR AND DIPRIVAN DRIP @ 25 MCG/KG/MIN. R NARE NGT IN PLACE, CLAMPED. MARINELLI CATH IN PLACE DRAINING URINE TO GRAVITY. HOB ELEVATED, BED IN LOWEST POSITION, CALL LIGHT IN REACH. WILL CONTINUE TO MONITOR PT.
[2019-05-11] MEDS: DEXTROSE 50% JECT 50 ML DISP.SYRIN IVP PRN (19:37)
--- NOTE | 2019-05-11 20:00 | NUR ---
BLOOD GLUCOSE BS 61, D50 GIVEN PER ORDERS. BS RECHECKED IN 15 MINS, 178. WILL CONTINE TO MONITOR.
--- NOTE | 2019-05-11 22:52 | NUR ---
BLOOD GLUCOSE BLOOD GLUCOSE RECHECKED AT THIS TIME PER ORDERS. BS 154, INSULIN HELD D/T JUST RECEIVING D50. WILL CONTINUE TO MONITOR PT.
[2019-05-11 23:24] LABS: BILIRUBIN,URINE NEGATIVE (NEGATIVE); CLARITY/URINE CLEAR (CLEAR); COLOR,URINE YELLOW (YELLOW); GLUCOSE,URINE NEGATIVE (NEGATIVE); KETONES,URINE NEGATIVE (NEGATIVE); LEUKOCYTE ESTERASE ,URINE TRACE (NEGATIVE); NITRITE, URINE NEGATIVE (NEGATIVE); PH,URINE 7.5 (5.0-8.0); PROTEIN URINE 1+ (NEGATIVE); UROBILINOGEN,URINE 0.2 (0.2-1.0)
[2019-05-11 23:27] LABS: BLOOD, URINE TRACE (NEGATIVE)
[2019-05-12] VITALS (32 sets, daily range): BP systolic 84–175
[2019-05-12 00:15] LABS: BACTERIA,URINE FEW /HPF (None Seen)
--- NOTE | 2019-05-12 01:30 | NUR ---
VALENTIN GONSALES RN TITRATE PROPOFOL TO 30 MCG/KG/MIN.
--- NOTE | 2019-05-12 01:40 | NUR ---
CHG CHG BATH GIVEN AT THIS TIME. LANA CARE DONE AND LINENS CHANGED. WILL CONTINUE TO MONITOR PT.
[2019-05-12] MEDS: INSULIN REGULAR, HUMAN 100 UNITS/ML, 10 ML VIAL (humuLIN R) SUBCUT PRN ×3 (02:03→23:19)
--- NOTE | 2019-05-12 02:15 | NUR ---
VALENTIN GONSALES RN TITRATE PROPOFOL TO 35 MCG/KG/MIN.
[2019-05-12] MEDS: PROPOFOL DRIP 100 ML IV PRN ×4 (02:20→21:56)
[2019-05-12] MEDS: metroNIDAZOLE 250 mg/NS 50 ML IV SCH ×3 (05:59→21:51)
[2019-05-12] MEDS: KCL 40 mEq in D5W 1000 mL 1,000 ML IV SCH ×3 (06:01→21:52)
[2019-05-12 06:59] LABS: BASOPHILS % (AUTO) 0.2 % (0.0-2.0); EOSINOPHILS # (AUTO) 0.2 K/uL (0.0-0.4); EOSINOPHILS % (AUTO) 2.1 % (0.0-4.0); HEMATOCRIT 37.6 % (36-54); HEMOGLOBIN 12.3 g/dL (14.0-18.0); LYMPHOCYTES # (AUTO) 1.2 K/uL (1.0-5.5); LYMPHOCYTES % (AUTO) 12.7 % (20.5-51.5); MEAN CORPUSCULAR HEMOGLOBIN 32 pg (27-31); MEAN CORPUSCULAR HGB CONC 33 % (32-36); MEAN CORPUSCULAR VOLUME 98 fL (79.0-98.0); MONOCYTES # (AUTO) 1.1 K/uL (0.0-1.0); NEUTROPHILS # (AUTO) 7.2 K/uL (1.8-7.7); PLATELET COUNT (AUTO) 188 K/uL (130-430); RED BLOOD CELL COUNT(AUTO) 3.85 MIL/uL (4.2-6.2); RED CELL DISTRIBUTION WIDTH 13.8 % (9.0-15.0); WHITE BLOOD COUNT (AUTO) 9.8 K/uL (4.8-10.8)
[2019-05-12 07:33] LABS: ALANINE AMINOTRANSFERASE 16 U/L (12-78); ALBUMIN 2.1 g/dL (3.4-4.8); ANION GAP 5 (5-15); ASPARTATE AMINOTRANSFERASE 18 U/L (10-37); C-REACTIVE PROTEIN QUANT 5.5 mg/dL (0-0.5); CALCIUM 7.2 mg/dL (8.4-11.0); CHLORIDE 101 mmol/L (98-107); GLUCOSE 183 mg/dL (70-99); PHOSPHORUS 2.7 mg/dL (2.7-4.5); POTASSIUM 3.8 mmol/L (3.5-5.1); SODIUM SERUM 135 mmol/L (136-145); TOTAL BILIRUBIN 0.4 mg/dL (0.0-1.0); UREA NITROGEN, BLOOD 21 mg/dL (8-21)
--- NOTE | 2019-05-12 07:36 | NUR ---
ENDORSEMENT BEDSIDE REPORT GIVEN TO AM RN USING SBAR APPROACH.
--- NOTE | 2019-05-12 08:00 | NUR ---
Received patient quiet with small amount of arousable tactile related being on seddative medication of Propofol. Medication infusing at 35 mcg/kg.min. Titrated to secure safety of patient from pulling at equipment of care. Will monitor and maintain as shift continues. Safety and comfort measure to insure.
[2019-05-12 08:56] LABS: ERYTHROCYTE SEDIMENTATION RATE 82 MM/HR (0-15)
[2019-05-12] MEDS: Liraglutide (Victoza 2-Pak) 1.8 MG SUBCUT SCH ×2 (09:00→18:00)
[2019-05-12] MEDS: IPRATROPIUM/ALBUTEROL SULFATE 3 ML AMPUL.NEB (DUONEB) INH SCH ×3 (09:00→20:54)
[2019-05-12] MEDS: PANTOPRAZOLE SODIUM 40 MG TAB PO SCH (09:16)
[2019-05-12] MEDS: cefTRIAXone 1 GM in D5W 50 ML IV SCH (09:17)
[2019-05-12] MEDS: INSULIN NPH/REGULAR 70-30, 100 UNITS/ML, 10 ML VIAL SUBCUT SCH ×2 (09:32→18:00)
[2019-05-12] MEDS: AZITHROMYCIN 500 MG in NS 250 ML IV SCH (11:17)
--- NOTE | 2019-05-12 12:59 | NUR ---
Nutrition Assessment (short note d/t lack of time) Admit Dx: CHF, Pneumonia A- RD reviewed pt's current EMR including diet Hx, physician notes, nursing notes, pertinent labs/meds/procedures, care trends and care activity. RD Notification received. Patient seen in bed, +vent, covered in blankets. Propofol infusing at 40mcg/kg/min which provides: 56 kcal/day. Per RN report, MD is aware of 2 day NPO, no plans of nutrition support yet. RN also reported wound in coccyx area. Food allergy: Peanuts, iodine Current Diet Order/Nutrition Support: NPO x 2 days Ht: 5'9 Wt: 193#/88 kg BMI: 28.6 kg/m2 %IBW: 121 IBW: 160#/73 kg ESTIMATED NUTRITIONAL REQUIREMENTS CALORIES/DAY: 1678 kcal/day (PSU 2003b for critical illness on vent) PROTEIN/DAY: 73-95 gm/day (1-1.3 gmkg IBW for elevated renal labs/COPD) FLUID/DAY: 2.2 L/day (30ml/kg IBW for maintenance) D: Inadequate nutrient intake r/t no diet order AEB NPO x 2 days and no order for nutrition support. I: Recommend: initiate nutrition support if PO intake is not appropriate. M: Monitor provision of nutrition support/diet advancement w/ goal of pt meeting at least 75% of estimated nutritional needs, labs trending WNL, normal GI function, skin integrity/wt maintenance. E: RD to F/U within 2-3 days [facility]
[2019-05-12] MEDS ORDERED: Liraglutide (Victoza 2-Pak) 1.8 MG SUBCUT ONE (13:00)
--- NOTE | 2019-05-12 13:09 | NUR ---
Dietitian Recommendation Recommend: initiate nutrition support if PO intake is not appropriate. Please see Nutritional Assessment for details. DEVON UNGER
--- NOTE | 2019-05-12 13:39 | NUR ---
IV DRIP. WITNESSED PRIMARY NURSE TITRATED DIPRIVAN TO 40 MCG/KG/MIN PRIOR TO CT SCAN.
--- NOTE | 2019-05-12 13:40 | NUR ---
TO CT SCAN. TRANSPORTED PT VIA BED, ON PORTABLE CARDIAC MONITORING, AND CONTINUOUS PULSE OXIMETER, R.T AMBU BAGGING PT VIA ET TUBE.
--- NOTE | 2019-05-12 14:31 | NUR ---
[id number] AND BACK TO ICU. BAGGED PT VIA AMBU BAG 15 LPM. NO RESPIRATORY DISTRESS NOTED.
--- NOTE | 2019-05-12 15:30 | NUR ---
Blood glucose 49 and rechecked to 50. D50 given as per protocol with lab draw as well. Will do repeat as per protocol.
[2019-05-12] MEDS: DEXTROSE 50% JECT 50 ML DISP.SYRIN IVP PRN (15:33)
--- NOTE | 2019-05-12 16:30 | NUR ---
Blood glucose re-checked with 109 results. Will continue to monitor as per orders.
--- NOTE | 2019-05-12 18:00 | NUR ---
Patient started on Glucerna as ordered from primary doctor after concerns arised with patient being NPO'D X 2 days. Informed by charge to hold any insulin schedule at this time due to low glucose earlier. Glucerna started and will run at 50 ml/hr as ordered. Will follow through after course of coverage accordingly. Condition/assessment of shift remains uneventful.
--- NOTE | 2019-05-12 19:15 | NUR ---
OPENING NOTE SBAR REPORT GIVEN BY ROSALINA PARTIDA. CARE ASSUMED.
--- NOTE | 2019-05-12 19:45 | NUR ---
PM ASSESSMENT PT LAYING IN BED. PT SEDATED. NO SIGNS OR SYMPTOMS OF DISTRESS. PT ON MECHANICAL VENT. ETT 8.0 LIP LINE 25. VENT SETTINGS SIMV=10, TIDAL VOLUME 500, FiO2 40%, PEEP 5.0. PT TOLERATING SETTING WELL. CRACKLES THROUGHOUT. CHEST RISE SYMMETRICAL. PT SINUS RHYTHM ON MONITOR. RADIAL AND PEDAL PULSES EQUAL AND REGULAR. NON PITTING EDEMA IN UPPER EXTREMITIES. PICC LINE TO RIGHT UPPER EXTREMITY WITH PROPOFOL @ 40 MCG/KG/MIN AND D5W WITH 40 MEQ POTASSIUM @ 100 ML/HR. PT HAS 20 G TO RIGHT FOREARM AND 20 G TO LEFT FOREARM. NO LOWER EXTREMITY EDEMA NOTED. PT HAS NG TUBE TO RIGHT NARE RUNNING GLUCERNA 1.2 @ 50 ML/HR. ABDOMEN SOFT NON-DISTENDED. BOWEL SOUNDS ACTIVE. MARINELLI CATHETER FLOWING TO GRAVITY PRESENT. URINE YELLOW AND CLEAR. SKIN TEARS TO BILATERAL HANDS. PT HAS SCD PRESENT. BED LOCKED IN LOWEST POSITION. SAFETY PRECAUTIONS IN PLACE. CALL LIGHT WITHIN REACH. WILL CONTINUE TO MONITOR.
[2019-05-13] VITALS (35 sets, daily range): BP systolic 99–164
--- NOTE | 2019-05-13 | NUR ---
ENDORSEMENT BEDSIDE REPORT GIVEN TO RADHA ROMANO TO ASSUME CARE.
--- NOTE | 2019-05-13 | NUR ---
PATIENT WAS ACCEPTED AND ASSESS DONE, PATIENT PICK NOW NOTICE PATIENT RIGHT HAND WAS AROUND THE ORAL ETT TRYING TO PULLED OUT, WAS ABLE TO RELEASED HAND FROM THE TUBE AND PLACE IN AN SOFT WRIST RESTRAINT FOR PROTECTION , PATIENT THEN WAS SUCTION ORAL OF THICK WHITE SECRETION LARGE AMOUN OBTAINED , STABLE,W TUBE FEEDING PATENT STABLE PATIENT MOVE THE RIGHT HAND MORE THAN THE LEFT ABLE TO MOVE LOWER LEGS, STABLE WILL CONTINUED WITH PLAN OF CARE
[2019-05-13] MEDS: PROPOFOL DRIP 100 ML IV PRN ×3 (02:15→21:58)
[2019-05-13] MEDS: INSULIN REGULAR, HUMAN 100 UNITS/ML, 10 ML VIAL (humuLIN R) SUBCUT PRN ×2 (02:30→18:34)
--- NOTE | 2019-05-13 04:00 | NUR ---
PATIENT WAS GIVEN AM CARE HAD VERY LARGE BROWN SOFT BM, NO SKIN BREAK DOWN ON THE RIGHT HAND AN LARGE SKIN TEAR PICTURE WERE TAKEN AND SKIN CARE GIVEN, DRESSING APPLIED STABLE SOME BLEEDING WAS NOTICE BEFORE THE DRESSING WAS APPLIED CONDITION UNCHANGE STABLE 0630 DIPRIVAN INCREASED TO 45MCG FOR MORE SEDATION PATIENT PULL OETT OUT ALSO PATIENT IS ON SIMVA MODE STABLE NEED TO AWAKE FOR ANY WEANING STABLE Addendum: 05/13/19 at 0655 by Hernando Fox RN Amended: Links added.
[2019-05-13] MEDS: KCL 40 mEq in D5W 1000 mL 1,000 ML IV SCH ×2 (05:30→15:50)
[2019-05-13] MEDS: metroNIDAZOLE 250 mg/NS 50 ML IV SCH (05:54)
[2019-05-13 06:26] LABS: BASOPHILS % (AUTO) 0.2 % (0.0-2.0); EOSINOPHILS # (AUTO) 0.3 K/uL (0.0-0.4); EOSINOPHILS % (AUTO) 2.8 % (0.0-4.0); HEMATOCRIT 37.4 % (36-54); HEMOGLOBIN 12.4 g/dL (14.0-18.0); LYMPHOCYTES # (AUTO) 1.3 K/uL (1.0-5.5); LYMPHOCYTES % (AUTO) 12.1 % (20.5-51.5); MEAN CORPUSCULAR HEMOGLOBIN 33 pg (27-31); MEAN CORPUSCULAR HGB CONC 33 % (32-36); MEAN CORPUSCULAR VOLUME 98 fL (79.0-98.0); MONOCYTES % (AUTO) 9.3 % (1.7-9.3); NEUTROPHILS # (AUTO) 8.1 K/uL (1.8-7.7); NEUTROPHILS % (AUTO) 75.6 % (40.0-70.0); PLATELET COUNT (AUTO) 163 K/uL (130-430); RED BLOOD CELL COUNT(AUTO) 3.81 MIL/uL (4.2-6.2); WHITE BLOOD COUNT (AUTO) 10.8 K/uL (4.8-10.8)
[2019-05-13 06:31] LABS: ALANINE AMINOTRANSFERASE 16 U/L (12-78); ALBUMIN 2.1 g/dL (3.4-4.8); ANION GAP 5 (5-15); ASPARTATE AMINOTRANSFERASE 17 U/L (10-37); CALCIUM 7.1 mg/dL (8.4-11.0); CHLORIDE 107 mmol/L (98-107); GLUCOSE 178 mg/dL (70-99); POTASSIUM 4.6 mmol/L (3.5-5.1); SODIUM SERUM 140 mmol/L (136-145); TOTAL BILIRUBIN 0.3 mg/dL (0.0-1.0); UREA NITROGEN, BLOOD 23 mg/dL (8-21)
--- NOTE | 2019-05-13 07:30 | NUR ---
Opening Note Received plan of care via sbar from endorsing nurse Registry. Completed patient round.
[2019-05-13] MEDS: IPRATROPIUM/ALBUTEROL SULFATE 3 ML AMPUL.NEB (DUONEB) INH SCH ×3 (08:09→20:58)
[2019-05-13] MEDS ORDERED: LORazepam 2 MG/ML VIAL IVP PRN (08:30)
[2019-05-13] MEDS: PANTOPRAZOLE SODIUM 40 MG TAB PO SCH (08:39)
[2019-05-13] MEDS: cefTRIAXone 1 GM in D5W 50 ML IV SCH (08:40)
[2019-05-13] MEDS: INSULIN NPH/REGULAR 70-30, 100 UNITS/ML, 10 ML VIAL SUBCUT SCH ×2 (08:43→18:35)
--- NOTE | 2019-05-13 09:00 | NUR ---
Witnessed diprivan titration from 45 to 40 mcg/kg/min.
--- NOTE | 2019-05-13 09:30 | NUR ---
Witnessed diprivan titration from 40 to 35 mcg/kg/min.
[2019-05-13] MEDS: AZITHROMYCIN 500 MG in NS 250 ML IV SCH (10:22)
--- NOTE | 2019-05-13 11:00 | NUR ---
Witnessed diprivan drip titration from 35 mcg/kg/min to 30 mcg/kg/min.
--- NOTE | 2019-05-13 11:00 | NUR ---
Witnessed diprivan titrated to 30 mcg/kg/min.
--- NOTE | 2019-05-13 12:00 | NUR ---
Witnessed diprivan drip titration from 30 mcg/kg/min to 25 mcg/kg/min.
[2019-05-13] MEDS ORDERED: PROPOFOL DRIP 100 ML IV ONE (12:04)
--- NOTE | 2019-05-13 13:00 | NUR ---
Witnessed diprivan drip titration from 30 mcg/kg/min to 25 mcg/kg/min. Addendum: 05/13/19 at 1934 by Shannan Lowry RN Titrated down from 25 mcg/kg/min to 202 mcg/kg/min.
--- NOTE | 2019-05-13 16:00 | NUR ---
Witnessed diprivan drip titration from 20 mcg/kg/min to 15 mcg/kg/min.
--- NOTE | 2019-05-13 16:00 | NUR ---
Nutrition F/U A: RD reviewed pt's current EMR record including diet Hx, physician notes, nursing notes, pertinent labs/meds/procedures, care trends, and care activity. Admission Dx: CHF, pneumonia Pt also found w/ acute respiratory failure, leukocytosis, septic shock per physician notes PMH: renal CA, skin CA, COPD, DM, dyslipidemia per physician note Food allergy: Peanuts, iodine Current Diet Order/Nutrition Support: Glucerna 1.5 at 50 ml/hr, Free Water Flush: 200 ML Q8H via NGT x1 day Ht: 5'9"/69" Wt: 193#/88 kg BMI: 28.6 kg/m2 (overweight, but appropriate for geriatric age) %IBW: 121 IBW: 160#/73 kg Subjective info: Pt seen resting in bed, +intubated on vent w/ TF Glucerna 1.2 infusing at 50 ml/hr at time of RD visit. Per RN, pt has been tolerating TF well, no residuals today, and possible extubation soon. Pt should be receiving Glucerna 1.5 TF formula as per physician order -- RD notified RN, and alerted federal appellate law clerk to provide -- RN acknowledged. Current TF order is adequate/appropriate. Pt does not have a wound to coccyx area -- RN stated pt has as skin tear to hand only. ESTIMATED NUTRITIONAL REQUIREMENTS -- Minute volume: 10.6/Temperature: 37.2 degrees C NEW CALORIES/DAY: 1810 kcal/day (PSU 2003b for critical illness on vent) NEW PROTEIN/DAY: 106-176 gm/day (1.2-2 gm/kg CBW for sepsis, COPD, CA) NEW FLUID/DAY: 2.2-2.6 L/day (25-30 ml/kg CBW for maintenance) D: Inadequate nutrient intake r/t no diet order AEB NPO x 2 days and no order for nutrition support. *no longer applicable -- pt is meeting estimated nutritional needs w/ TF I: Recommend continuing Glucerna 1.5 at 50 ml/hr, Free Water Flush: 200 ML Q8H via NGT Provides: 1800 kcal/day, 99 gm protein/day, and 1511 ml free water/day Meets: 99% of estimated caloric needs and 93% of lower end of estimated protein needs M: Monitor provision of nutrition support/diet advancement w/ goal of pt meeting at least 75% of estimated nutritional needs, labs trending WNL, normal GI function, skin integrity/wt maintenance. E: High risk; F/U within 2-3 days
--- NOTE | 2019-05-13 16:07 | NUR ---
Dietitian Recommendations * Recommend continuing Glucerna 1.5 at 50 ml/hr, Free Water Flush: 200 ML Q8H via NGT Provides: 1800 kcal/day, 99 gm protein/day, and 1511 ml free water/day Meets: 99% of estimated caloric needs and 93% of lower end of estimated protein needs LP, RD Please refer to Nutrition F/U fo details. Addendum: 05/13/19 at [address] Please refer to Nutrition F/U for details.
[2019-05-13] MEDS: Liraglutide (Victoza 2-Pak) 1.8 MG SUBCUT SCH (18:39)
--- NOTE | 2019-05-13 19:23 | NUR ---
Closing Note Provided plan of care via sbar to receiving nurse Carmelo ROMANO. Completed patient round.
--- NOTE | 2019-05-13 19:30 | NUR ---
opening note Received patient from day shift nurse. Awake and able to follow simple commands. Non verbal as patient is intubated with ETT 8.0, 26 cm to lip and settings as listed: SIMV 8, TV 500, FIO2 40% Peep 5+, PS 10. NGT in place, running GT feeding, no residuals noted. Placement confirmed via auscultation. Naqvi catheter in place draining urine to gravity. LUNA picc and RAC #20g in place. Diprivan infusing at 15 mcg/kg/min. IVF infusing. No signs or symptoms of infiltration noted. IV sites CDI. Bed lock in lowest position, call light within reach, and safety precautions in place. will continue to monitor.
--- NOTE | 2019-05-13 22:00 | NUR ---
CHG bath given and linen changed. Patient tolerated well. Will continue to monitor.
--- NOTE | 2019-05-13 22:00 | NUR ---
Angel Hall RN titrate Diprivan Drip from 15mcg/kg/min to 20mcg/kg/min.
--- NOTE | 2019-05-13 22:30 | NUR ---
Angel Hall RN titrate Diprivan Drip from 20mcg/kg/min to 25mcg/kg/min.
[2019-05-14] VITALS (34 sets, daily range): BP systolic 103–167
--- NOTE | 2019-05-14 | NUR ---
PATIENT RESTING WITH BOTH EYES CLOSED. BM WAS NOTED; PATIENT CLEANED AND REPOSITIONED FOR COMFORT. VSS STABLE, NO SIGNS OF RESPIRATORY DISTRESS NOTED. WILL CONTINUE TO MONITOR.
[2019-05-14] MEDS: KCL 40 mEq in D5W 1000 mL 1,000 ML IV SCH (00:46)
[2019-05-14] MEDS: PROPOFOL DRIP 100 ML IV PRN (05:12)
--- NOTE | 2019-05-14 05:20 | NUR ---
Angel Hall RN titrate Diprivan drip from 25 mcg/kg/min to 30 mcg/kg/min. Pt tolerating well.
[2019-05-14 06:12] LABS: BASOPHILS % (AUTO) 0.2 % (0.0-2.0); EOSINOPHILS # (AUTO) 0.3 K/uL (0.0-0.4); EOSINOPHILS % (AUTO) 2.6 % (0.0-4.0); HEMATOCRIT 38.8 % (36-54); HEMOGLOBIN 12.7 g/dL (14.0-18.0); LYMPHOCYTES # (AUTO) 1.8 K/uL (1.0-5.5); LYMPHOCYTES % (AUTO) 14.5 % (20.5-51.5); MEAN CORPUSCULAR HEMOGLOBIN 32 pg (27-31); MEAN CORPUSCULAR HGB CONC 33 % (32-36); MEAN CORPUSCULAR VOLUME 98 fL (79.0-98.0); MONOCYTES % (AUTO) 8.5 % (1.7-9.3); NEUTROPHILS % (AUTO) 74.2 % (40.0-70.0); PLATELET COUNT (AUTO) 176 K/uL (130-430); RED BLOOD CELL COUNT(AUTO) 3.94 MIL/uL (4.2-6.2); RED CELL DISTRIBUTION WIDTH 13.9 % (9.0-15.0); WHITE BLOOD COUNT (AUTO) 12.2 K/uL (4.8-10.8)
[2019-05-14 06:29] LABS: ALANINE AMINOTRANSFERASE 22 U/L (12-78); ALBUMIN 2.2 g/dL (3.4-4.8); ANION GAP 5 (5-15); ASPARTATE AMINOTRANSFERASE 23 U/L (10-37); C-REACTIVE PROTEIN QUANT 3.6 mg/dL (0-0.5); CALCIUM 7.5 mg/dL (8.4-11.0); CHLORIDE 104 mmol/L (98-107); CREATININE 2.12 mg/dL (0.55-1.30); GLUCOSE 135 mg/dL (70-99); PHOSPHORUS 3.6 mg/dL (2.7-4.5); POTASSIUM 5.4 mmol/L (3.5-5.1); SODIUM SERUM 136 mmol/L (136-145); TOTAL BILIRUBIN 0.4 mg/dL (0.0-1.0); UREA NITROGEN, BLOOD 23 mg/dL (8-21)
--- NOTE | 2019-05-14 06:55 | NUR ---
closing note Resting in bed with no changes to vent settings and tolerating with saturations of 99-100%. No signs of distress or pain noted. continue to reposition for comfort. Diprivan drip infusing at 30 mcg/k/min and effective as patient is able to arouse with minimal stimuli. Naqvi catheter continues to drain urine to gravity. will continue to monitor .
--- NOTE | 2019-05-14 07:25 | NUR ---
Endorsement Report given oncoming RN at bedside via SBAR approach.
[2019-05-14] MEDS: IPRATROPIUM/ALBUTEROL SULFATE 3 ML AMPUL.NEB (DUONEB) INH SCH ×3 (07:43→20:08)
[2019-05-14 07:54] LABS: ERYTHROCYTE SEDIMENTATION RATE 83 MM/HR (0-15)
--- NOTE | 2019-05-14 08:53 | NUR ---
@0730 Assumed pt care bedside report received from KAYLA RNS. Met pt fully sedated on propofol at 30mcgs/kg/min minimal arouse and Vent settings were SIMV mode rate 8/fio2 40%/peep 5 PS 10. ABG done received @[address] Beal and orders received to change vent settings back to A/C mode and titrate down Propofol @0875 done by RT, Propofol titrated down to 20mcgs/kg/min and restrained applied for pt's safety. @0821 pt's arrived updates at the bedside on pt's condition, treatment and she verbalized understanding
--- NOTE | 2019-05-14 08:56 | NUR ---
RT Note: 0825 Pt placed on AC 12, Vt 500, PEEP 5, and 40% FiO2 per Dr Beal. RN aware of changes. Will continue to monitor pt. Addendum: 05/14/19 at 0857 by Shanique Manuel RT Amended: Links added.
[2019-05-14] MEDS: cefTRIAXone 1 GM in D5W 50 ML IV SCH (09:34)
[2019-05-14] MEDS: AZITHROMYCIN 500 MG in NS 250 ML IV SCH (09:36)
[2019-05-14] MEDS: INSULIN NPH/REGULAR 70-30, 100 UNITS/ML, 10 ML VIAL SUBCUT SCH ×2 (09:38→18:10)
[2019-05-14] MEDS ORDERED: predniSONE 1 MG TABLET PO ONE (11:30)
[2019-05-14] MEDS ORDERED: PREDNISONE 20 MG TABLET PO ONE (12:00)
[2019-05-14] MEDS ORDERED: PANTOPRAZOLE SODIUM 40 MG/VIAL (PROTONIX) IVP ONE (13:00)
--- NOTE | 2019-05-14 13:04 | NUR ---
Notified Dr Beal about the pt's Potassium 5.4 today main IV changed to D5W same rate. pt's at the bedside ongoing education and support at the bedside and Porpofol decreased to 5mcgs/kg/min pt in no distress tolerating well
[2019-05-14] MEDS: D5W 1,000 ML IV SCH ×2 (14:00→23:00)
--- NOTE | 2019-05-14 17:00 | NUR ---
pt have bm perineal /skin care done and pt repositioned for comfort. Oral care done and suctioned via ETT.
[2019-05-14] MEDS: INSULIN REGULAR, HUMAN 100 UNITS/ML, 10 ML VIAL (humuLIN R) SUBCUT PRN ×2 (18:09→23:16)
[2019-05-14] MEDS: Liraglutide (Victoza 2-Pak) 1.8 MG SUBCUT SCH (18:12)
--- NOTE | 2019-05-14 19:15 | NUR ---
[facility] to Len ROMANO SBAR given for continous pt care as at this time no changes in pt's care and condition vitals signs stable still on mechanical ventilator tolerating well all treatments no adverse reaction.
--- NOTE | 2019-05-14 20:00 | NUR ---
LETHARGIC. RESPONDS TO NOXIOUS STIMULI. ORALLY INTUBATED. SUCTIONED WITH MOD AMOUNT OF THICK MELARA COLORED MUCUS OBTAINED. ORAL CARE GIVEN. NGT FEEDING WITH GLUCERNA 1.2 INFUSING AT 50CC/HR. RESIDUAL CHECK 0. RAPHAEL SOFT WRIST RESTRAINTS ON FOR SAFETY. MARINELLI CATH PATENT DRAINING CLEAR ANALIA URINE TO GRAVITY. SINUS RHYTHM. LUNA PICC LINE DRSG D/I. ON DIPRIVAN DRIP AT 5 MCG/KG/MIN. Addendum: 05/15/19 at 0333 by Len Mtz RN RAPHAEL SOFT WRIST RESTRAINTS OFF.
[2019-05-14] MEDS: PREDNISONE 20 MG TABLET PO SCH (21:38)
--- NOTE | 2019-05-14 22:00 | NUR ---
SUCTIONED. HS CARE GIVEN . TURNED.
--- NOTE | 2019-05-14 23:00 | NUR ---
ACCU-CHEK 171, 2 UNITS REGULAR INSULIN SQ GIVEN PER SLIDING SCALE COV.
--- NOTE | 2019-05-14 23:05 | NUR ---
WITNESS Witness ROSALINA Harrington titrate Diprivan from 5mcg/kg/min to 10mcg/kg/min.
--- NOTE | 2019-05-14 23:05 | NUR ---
RESTLESS. DIPRIVAN DRIP INCREASED TO 10 MCG/KG/MIN
[2019-05-15] VITALS (28 sets, daily range): BP systolic 99–158
--- NOTE | 2019-05-15 | NUR ---
DOZES ON AND OFF. SUCTIONED WITH SAME RESULTS. TURNED. ORAL CARE GIVEN. RESIDUAL CHECK 0. NGT FLUSHED WITH 200CC H2O.
--- NOTE | 2019-05-15 00:05 | NUR ---
WITNESS Witness ROSALINA Harrington titrate Diprivan from 10mcg/kg/min to 15mcg/kg/min.
--- NOTE | 2019-05-15 00:05 | NUR ---
RESTLESS. DIPRIVAN INCREASED TO 15 MCG/KG/MIN.
--- NOTE | 2019-05-15 00:15 | NUR ---
1 LARGE WATERY BROWN FOUL SMELLING STOOL DEFECATED. CLEANED. LANA-CARE GIVEN. CHG BATH DONE. MARINELLI CARE, BACK CARE, SKIN CARE RENDERED. PARTIAL LINEN CHANGE DONE. RESISTIVE TO CARE. DOES NOT ASSIST WITH TURNING. JULIAN PROC WELL.
--- NOTE | 2019-05-15 01:00 | NUR ---
RESTLESS. DIPRIVAN INCREASED TO 20 MCG/KG/MIN.
--- NOTE | 2019-05-15 01:00 | NUR ---
WITNESS Witness ROSALINA Harrington titrate Diprivan from 15mcg/kg/min to 20mcg/kg/min.
--- NOTE | 2019-05-15 02:00 | NUR ---
WITNESS Witness ROSALINA Harrington titrate Diprivan from 20mcg/kg/min to 25mcg/kg/min.
--- NOTE | 2019-05-15 02:00 | NUR ---
RESTLESS. DIPRIVAN DRIP INCREASED TO 25 MCG/KG/MIN.
--- NOTE | 2019-05-15 03:00 | NUR ---
RESTLESS. DIPRIVAN DRIP INCREASED TO 30 MCG/KG/MIN.
--- NOTE | 2019-05-15 03:00 | NUR ---
WITNESS Witness ROSALINA Harrington titrate Diprivan from 25mcg/kg/min to 30mcg/kg/min.
--- NOTE | 2019-05-15 03:30 | NUR ---
ACCU-CHEK 187, 2 UNITS REGULAR INSULIN SQ GIVEN PER SLIDING SCALE COV.
--- NOTE | 2019-05-15 04:00 | NUR ---
SUCTIONED. TURNED. ORAL CARE. RESISTIVE TO CARE. RESTLESS. DIPRIVAN INCREASED TO 35 MCG/KG/MIN. RESIDUAL CHECK 0.
--- NOTE | 2019-05-15 04:00 | NUR ---
WITNESS Witness ROSALINA Harrington titrate Diprivan from 30mcg/kg/min to 35mcg/kg/min.
[2019-05-15] MEDS: INSULIN REGULAR, HUMAN 100 UNITS/ML, 10 ML VIAL (humuLIN R) SUBCUT PRN ×5 (04:03→18:21)
--- NOTE | 2019-05-15 04:20 | NUR ---
MORPHINE 4 MG IVP GIVEN FOR GENERALIZED DISCOMFORT.
[2019-05-15] MEDS: MORPHINE 4 MG/ML INJ. SYRINGE IVP PRN (04:21)
--- NOTE | 2019-05-15 04:30 | NUR ---
LEFT AND RIGHT HAND DRESSINGS CHANGED. TOLERATED WELL.
--- NOTE | 2019-05-15 04:45 | NUR ---
WITNESS Witness ROSALINA Harrington titrate Diprivan from 35mcg/kg/min to 40mcg/kg/min.
--- NOTE | 2019-05-15 04:45 | NUR ---
RESTLESS. DIPRIVAN INCREASED TO 40 MCG/KG/MIN. 1 LARGE WATERY BROWN LBM DEFECATED. PERICARE GIVEN. MARINELLI CARE , BACK CARE DONE.
--- NOTE | 2019-05-15 06:00 | NUR ---
SUCTIONED AND TURNED Q2 HRS AND PRN. UO GOOD. DIPRIVAN AT 40 MCG/KG/MIN. REMAINS IN GUARDED CONDITION.
[2019-05-15 06:01] LABS: BASOPHILS % (AUTO) 0.1 % (0.0-2.0); EOSINOPHILS % (AUTO) 0.2 % (0.0-4.0); HEMOGLOBIN 13.3 g/dL (14.0-18.0); LYMPHOCYTES # (AUTO) 0.8 K/uL (1.0-5.5); LYMPHOCYTES % (AUTO) 6.2 % (20.5-51.5); MEAN CORPUSCULAR HEMOGLOBIN 32 pg (27-31); MEAN CORPUSCULAR HGB CONC 32 % (32-36); MEAN CORPUSCULAR VOLUME 99 fL (79.0-98.0); MONOCYTES # (AUTO) 0.2 K/uL (0.0-1.0); MONOCYTES % (AUTO) 1.7 % (1.7-9.3); NEUTROPHILS # (AUTO) 11.5 K/uL (1.8-7.7); NEUTROPHILS % (AUTO) 91.8 % (40.0-70.0); PLATELET COUNT (AUTO) 178 K/uL (130-430); RED BLOOD CELL COUNT(AUTO) 4.15 MIL/uL (4.2-6.2); RED CELL DISTRIBUTION WIDTH 13.6 % (9.0-15.0); WHITE BLOOD COUNT (AUTO) 12.5 K/uL (4.8-10.8)
[2019-05-15] MEDS: PROPOFOL DRIP 100 ML IV PRN ×2 (06:13→10:19)
--- NOTE | 2019-05-15 06:30 | NUR ---
ACCU-CHEK 201, 4 UNITS REGULAR INSULIN SQ GIVEN.
[2019-05-15 06:45] LABS: ALANINE AMINOTRANSFERASE 25 U/L (12-78); ALBUMIN 2.4 g/dL (3.4-4.8); ANION GAP 5 (5-15); ASPARTATE AMINOTRANSFERASE 24 U/L (10-37); C-REACTIVE PROTEIN QUANT 1.9 mg/dL (0-0.5); CALCIUM 8.1 mg/dL (8.4-11.0); CHLORIDE 102 mmol/L (98-107); CREATININE 2.01 mg/dL (0.55-1.30); GLUCOSE 206 mg/dL (70-99); PHOSPHORUS 3.5 mg/dL (2.7-4.5); SODIUM SERUM 133 mmol/L (136-145); TOTAL BILIRUBIN 0.4 mg/dL (0.0-1.0); UREA NITROGEN, BLOOD 29 mg/dL (8-21)
[2019-05-15 06:47] LABS: POTASSIUM 5.9 mmol/L (3.5-5.1)
[2019-05-15] MEDS ORDERED: FUROSEMIDE 40 MG/4 ML VIAL IVP ONE (07:15)
--- NOTE | 2019-05-15 07:30 | NUR ---
Opening Note Received plan of care via sbar from endorsing nurse Len RN. Completed patient round.
[2019-05-15 08:14] LABS: ERYTHROCYTE SEDIMENTATION RATE 78 MM/HR (0-15)
--- NOTE | 2019-05-15 08:30 | NUR ---
Dr. Costa at bedside. No new orders.
[2019-05-15] MEDS: IPRATROPIUM/ALBUTEROL SULFATE 3 ML AMPUL.NEB (DUONEB) INH SCH ×3 (08:54→21:09)
[2019-05-15] MEDS ORDERED: SODIUM POLYSTYRENE SULFONATE 15 GM/60 ML UDBTL PO ONE (09:00)
--- NOTE | 2019-05-15 09:00 | NUR ---
Dr. Chinchilla at bedside. Received order for 45 mg of kayexalate.
[2019-05-15] MEDS: PANTOPRAZOLE SODIUM 40 MG/VIAL (PROTONIX) IVP SCH (09:16)
[2019-05-15] MEDS: cefTRIAXone 1 GM in D5W 50 ML IV SCH (09:16)
[2019-05-15] MEDS: PREDNISONE 20 MG TABLET PO SCH ×2 (09:16→20:46)
[2019-05-15] MEDS: D5W 1,000 ML IV SCH ×2 (09:17→20:46)
[2019-05-15] MEDS: INSULIN NPH/REGULAR 70-30, 100 UNITS/ML, 10 ML VIAL SUBCUT SCH ×2 (09:18→18:24)
--- NOTE | 2019-05-15 10:30 | NUR ---
Witnessed diprivan titration from 40 mcg/kg/min to 20 mcg/kg/ min per Dr. Beal.
--- NOTE | 2019-05-15 10:30 | NUR ---
Dr. Hill at bedside. Received orders to titrate diprivan from 40 mcg/min to 20 mcg/min. Then titrate down 5 mcg/min every 5min until we achieve 5 mcg.min
--- NOTE | 2019-05-15 10:36 | NUR ---
Witnessed diprivan titration from 20 mcg/kg/min to 5 mcg/kg/ min per Dr. Beal.
--- NOTE | 2019-05-15 10:40 | NUR ---
Dr. Hill requested to titrate diprivan from 20 mcg/min to 5 mcg/min. Received orders to place restraints due to patient trying to pull out ETT tube.
--- NOTE | 2019-05-15 10:45 | NUR ---
Dr. Hill changed vent settings with RT to SIMV 6, TD 500, FIO2 40%, and PS 10.
--- NOTE | 2019-05-15 10:45 | NUR ---
1045 WEANING ORDERS PLACED PT ON SIMV 6, PS [address] REDD. WILL CONTINUE TO MONITOR Addendum: 05/15/19 at 1056 by Sussy Sifuentes RT Amended: Links added.
--- NOTE | 2019-05-15 11:09 | NUR ---
1100 CHANGED FIO2 TO 35% PER DR. REDD Addendum: 05/15/19 at 1113 by Sussy Sifuentes RT Amended: Links added.
--- NOTE | 2019-05-15 12:20 | NUR ---
1220 TITRATION ORDER FOR CPAP5 PS10, ABG AROUND [address] REDD Addendum: 05/15/19 at 1328 by Sussy Sifuentes RT Amended: Links added.
--- NOTE | 2019-05-15 12:20 | NUR ---
Witnessed shawn turned off per Dr. Beal.
--- NOTE | 2019-05-15 14:50 | NUR ---
[address] REDD, PLACED ON N/C WITH CO2 MONITORING. PT IS SATING 93-94. WILL CONTINUE TO MONITOR Addendum: 05/15/19 at 1502 by Sussy Sifuentes RT Amended: Links added.
[2019-05-15] MEDS ORDERED: ACETAMINOPHEN 325 MG TABLET PO PRN (17:30)
[2019-05-15] MEDS: ACETAMINOPHEN 650 MG/20.3 ML UDC GT PRN (18:19)
[2019-05-15] MEDS: Liraglutide (Victoza 2-Pak) 1.8 MG SUBCUT SCH (18:20)
--- NOTE | 2019-05-15 19:20 | NUR ---
OPENING NOTE/PM ASSESSMENT SBAR REPORT RECEIVED FROM DAV ROMANO. ASSUMED CARE OF PT. PT LAYING IN BED. PT ANOX2. PT HARD OF HEARING. PT ON 2L NASAL CANNULA. PT SINUS RHYTHM ON MONITOR.RADIAL AND PEDAL PULSES PRESENT. PT HAS RIGHT UPPER EXTREMITY PICC LINE RUNNING D5W @ 100 ML/HR AND 20 G IN RIGHT FOREARM SALINE LOCKED. PT HAS NG TUBE TO RIGHT NARE RUNNING GLUCERNA 1.2 @ 50 ML/HR. NO RESIDUAL. BOWEL SOUNDS ACTIVE. MARINELLI CATHETER FLOWING TO GRAVITY PRESENT. URINE YELLOW AND CLEAR. SKIN TEARS TO BILATERAL HANDS PRESENT. DRESSING CLEAN DRY AND INTACT. AT BEDSIDE. BED LOCKED IN LOWEST POSITION. SAFETY PRECAUTIONS IN PLACE. CALL LIGHT WITHIN REACH. WILL CONTINUE TO MONITOR.
--- NOTE | 2019-05-15 19:38 | NUR ---
Closing Note Provided plan of care via sbar to receiving nurse RN.
[2019-05-16] VITALS (24 sets, daily range): BP systolic 108–171
[2019-05-16] MEDS: INSULIN REGULAR, HUMAN 100 UNITS/ML, 10 ML VIAL (humuLIN R) SUBCUT PRN ×4 (03:39→17:27)
[2019-05-16] MEDS: D5W 1,000 ML IV SCH (05:30)
[2019-05-16 06:09] LABS: HEMATOCRIT 37.7 % (36-54); HEMOGLOBIN 12.1 g/dL (14.0-18.0); MONOCYTES # (AUTO) 0.2 K/uL (0.0-1.0); RED BLOOD CELL COUNT(AUTO) 3.85 MIL/uL (4.2-6.2)
[2019-05-16 06:20] LABS: ALANINE AMINOTRANSFERASE 29 U/L (12-78); ALBUMIN 2.3 g/dL (3.4-4.8); ANION GAP 6 (5-15); ASPARTATE AMINOTRANSFERASE 25 U/L (10-37); C-REACTIVE PROTEIN QUANT 0.5 mg/dL (0-0.5); CALCIUM 8.3 mg/dL (8.4-11.0); CHLORIDE 100 mmol/L (98-107); CREATININE 2.12 mg/dL (0.55-1.30); GLUCOSE 229 mg/dL (70-99); PHOSPHORUS 5.2 mg/dL (2.7-4.5); SODIUM SERUM 135 mmol/L (136-145); TOTAL BILIRUBIN 0.3 mg/dL (0.0-1.0); UREA NITROGEN, BLOOD 37 mg/dL (8-21)
[2019-05-16 06:26] LABS: LYMPHOCYTES # (AUTO) 0.6 K/uL (1.0-5.5); LYMPHOCYTES % (AUTO) 4.7 % (20.5-51.5); MEAN CORPUSCULAR HEMOGLOBIN 31 pg (27-31); MEAN CORPUSCULAR HGB CONC 32 % (32-36); MEAN CORPUSCULAR VOLUME 98 fL (79.0-98.0); MONOCYTES % (AUTO) 1.2 % (1.7-9.3); NEUTROPHILS # (AUTO) 12.6 K/uL (1.8-7.7); PLATELET COUNT (AUTO) 226 K/uL (130-430); RED CELL DISTRIBUTION WIDTH 13.3 % (9.0-15.0); WHITE BLOOD COUNT (AUTO) 13.4 K/uL (4.8-10.8)
--- NOTE | 2019-05-16 07:04 | NUR ---
Post dated for 05/15 1429 Reported new ABG for bed 7, [place]. Received orders to extubate and place on 2 L NC.
--- NOTE | 2019-05-16 07:10 | NUR ---
RECEIVED NURSING REPORT FROM LABORATORY ANIMAL CARE VETERINARIAN FRANKLIN Gonzales
[2019-05-16 07:13] LABS: ERYTHROCYTE SEDIMENTATION RATE 81 MM/HR (0-15)
--- NOTE | 2019-05-16 07:23 | NUR ---
CLOSING NOTE SBAR REPORT GIVEN TO RHODA ROMANO. PT IN NO APPARENT DISTRESS. PT SLEEPING. CARE ENDORSED.
--- NOTE | 2019-05-16 08:02 | NUR ---
SPOKE TO Dr. SINGH REGARDING POTASSIUM LEVEL 5, ORDERED GIVE KAYEXLATE 30 ML VIA NG-T X ONCE, ACCU CHECK EVERY 6 HOURS, AND FOLLOW UP SWALLOW EVAL
[2019-05-16] MEDS ORDERED: SODIUM POLYSTYRENE SULFONATE 15 GM/60 ML UDBTL PO ONE (08:15)
[2019-05-16] MEDS: cefTRIAXone 1 GM in D5W 50 ML IV SCH (08:49)
[2019-05-16] MEDS: INSULIN NPH/REGULAR 70-30, 100 UNITS/ML, 10 ML VIAL SUBCUT SCH ×2 (08:51→17:43)
[2019-05-16] MEDS: PANTOPRAZOLE SODIUM 40 MG/VIAL (PROTONIX) IVP SCH (09:00)
[2019-05-16] MEDS: PREDNISONE 20 MG TABLET PO SCH ×2 (09:20→21:29)
[2019-05-16 10:49] LABS: NEUTROPHILS % (AUTO) 94.1 % (40.0-70.0)
--- NOTE | 2019-05-16 11:00 | NUR ---
AT 1040 A.M, SEE PATIENT, ORDERED FOLLOW UP CHEST X-RAY, ABG, LAB IN TOMORROW A.M
--- NOTE | 2019-05-16 11:03 | NUR ---
AT 1000 A.M, SEE PATIENT, ORDERED FOLLOW UP CHEST X-RAY, ABG, CBC, CMP IN TOMORROW A.M Addendum: 05/16/19 at 1920 by Adam Davison RN DUPLICATE CHARTING
[2019-05-16] MEDS: ACETAMINOPHEN 650 MG/20.3 ML UDC GT PRN (11:19)
[2019-05-16] MEDS: 0.45% NACL 1,000 ML IV SCH (11:20)
--- NOTE | 2019-05-16 11:24 | NUR ---
Pt repositioned to right side with pillow support. SR on monitor and BP stable. Pt alert but confused asking when does the trip start? Reoriented. Pt medicated with tylenol for generalized pain per request. IVF changed to 1/2 NS at 70 cc/hr. Will continue to monitor.
--- NOTE | 2019-05-16 12:57 | NUR ---
TRISTEN COLLINS. CALLED KATIE LEFT A VOICE MESSAGE DIALED [phone]
--- NOTE | 2019-05-16 13:50 | NUR ---
Rotary Rock Drilling Machine Operator: Met with pt. and to conduct a Discharge Planning Assessment. CARPENTRY FOREMAN met with pt and . Pt was just extubated yesterday. was helpful and assisted pt. in answering questions for this interview. Pt. is also a [facility] pt. for pain management of his spine with Dr. Tran. Pt. also has macular degeneration and receives injections in his eyes. stated treatment has been helpful. stated they do not know the poc or prognosis at this point. She said pt has never had any Dx. with any mental health issues. Pt. was alert and awake. CARPENTRY FOREMAN will remain available as needed.
--- NOTE | 2019-05-16 14:31 | NUR ---
Nutrition F/U A: RD reviewed pt's current EMR record including diet Hx, physician notes, nursing notes, pertinent labs/meds/procedures, care trends, and care activity. Admission Dx: CHF, pneumonia Pt also found w/ acute respiratory failure, leukocytosis, septic shock per physician notes PMH: renal CA, skin CA, COPD, DM, dyslipidemia per physician note Food allergy: Peanuts, iodine Current Diet Order/Nutrition Support: Glucerna 1.5 at 50 ml/hr, Free Water Flush: 200 ML Q8H via NGT x4 days Ht: 5'9"/69" Wt: 193#/88 kg BMI: 28.6 kg/m2 (overweight, but appropriate for geriatric age) %IBW: 121 IBW: 160#/73 kg Subjective info: Pt seen resting in bed, and family at bedside. On nasal cannula. Glucerna 1.2 infusing which provides 1440 kcal which meets 65% of lower end of est calorie needs only. Per bed huddle discussion, pt was extubated yesterday. +BM 05/16. Per RN report, no residual this morning, EN is tolerated. ESTIMATED NUTRITIONAL REQUIREMENTS NEW CALORIES/DAY: 7015-2141 kcal/day (30-35 kcal/kg IBW for sepsis) PROTEIN/DAY: 106-176 gm/day (1.2-2 gm/kg CBW for sepsis, COPD, CA) FLUID/DAY: 2.2-2.6 L/day (25-30 ml/kg CBW for maintenance) D: Inadequate nutrient intake r/t no diet order AEB NPO x 2 days and no order for nutrition support. *no longer applicable -- pt is meeting estimated nutritional needs w/ TF Inadequate EN intake r/t EN formula concentration AEB Glucerna 1.2 provides <70% of est needs. (*new) I: Recommend Glucerna 1.5 at 50 ml/hr, Free Water Flush: 200 ML Q8H via NGT Provides: 1800 kcal/day, 99 gm protein/day, and 1511 ml free water/day Meets: 82% of lower end of estimated caloric needs and 93% of lower end of estimated protein needs M: Monitor EN tolerance and intake w/ goal of pt meeting at least 75% of estimated nutritional needs, labs trending WNL, normal GI function, skin integrity/wt maintenance. E: High risk; F/U within 2-3 days
--- NOTE | 2019-05-16 14:40 | NUR ---
Dietitian recommendation Recommend Glucerna 1.5 at 50 ml/hr, Free Water Flush: 200 ML Q8H via NGT Provides: 1800 kcal/day, 99 gm protein/day, and 1511 ml free water/day Meets: 82% of lower end of estimated caloric needs and 93% of lower end of estimated protein needs INTERMEDIATE, RD
[2019-05-16] MEDS: Liraglutide (Victoza 2-Pak) 1.8 MG SUBCUT SCH (17:38)
--- NOTE | 2019-05-16 18:09 | NUR ---
AT 1755 P.M, SEE PATIENT AND UPDATED PATIENT,S CONDITION WITH FAMILIES AT BEDSIDE, ORDERED FOLLOW UP LAB IN A.M
--- NOTE | 2019-05-16 19:13 | NUR ---
GIVE COMPLETE NURSING REPORT TO GEOTECHNICAL LABORATORY TECHNICIAN FRANKLIN Gonzales
--- NOTE | 2019-05-16 19:15 | NUR ---
OPENING NOTE/PM ASSESSMENT SBAR REPORT RECEIVED FROM RHODA ROMANO. CARE ASSUMED. PT LAYING IN BED. PT ANOX2. PT ON 2L NASAL CANULA. RHONCHI IN ALL LOBES. DIMINISHED IN BILATERAL BASES. PT OXYGENATING WELL. PT SINUS RHYTHM ON MONITOR. RADIAL AND PEDAL PULSES NORMAL. NO EDEMA NOTED. PT HAS RIGHT UPPER ARM PICC LINE RUNNING 1/2 NS @ 70 ML/HR. PT HAS AN NG TUBE TO HIS RIGHT NARE RUNNING GLUCERNA 1.2 @ 75ML/HR. BOWEL SOUNDS ACTIVE. PT HAS MARINELLI CATHETER IN PLACE FLOWING TO GRAVITY. PT HAS SKIN TEARS TO BILATERAL HANDS. DRESSINGS CLEAN DRY AND INTACT. PT HAS REDNESS TO BILATERAL BUTTOCKS OPEN TO AIR WITH Z GUARD. PT HAS SCD'S IN PLACE. BED LOCKED IN LOWEST POSITION. SAFETY PRECAUTIONS IN PLACE. CALL LIGHT WITH IN REACH. WILL CONTINUE TO MONITOR.
[2019-05-16] MEDS: IPRATROPIUM/ALBUTEROL SULFATE 3 ML AMPUL.NEB (DUONEB) INH SCH (20:26)
--- NOTE | 2019-05-16 22:00 | NUR ---
OPENING NOTE/PM ASSESSMENT SBAR REPORT RECEIVED FROM RHODA ROMANO. CARE ASSUMED. PT LAYING IN BED. PT ANOX2. PT ON 2L NASAL CANULA. RHONCHI IN ALL LOBES. DIMINISHED IN BILATERAL BASES. PT OXYGENATING WELL. PT SINUS RHYTHM ON MONITOR. RADIAL AND PEDAL PULSES NORMAL. NO EDEMA NOTED. PT HAS RIGHT UPPER ARM PICC LINE RUNNING 1/2 NS @ 70 ML/HR. PT HAS AN NG TUBE TO HIS RIGHT NARE RUNNING GLUCERNA 1.2 @ 75ML/HR. BOWEL SOUNDS ACTIVE. PT HAS MARINELLI CATHETER IN PLACE FLOWING TO GRAVITY. PT HAS SKIN TEARS TO BILATERAL HANDS. DRESSINGS CLEAN DRY AND INTACT. PT HAS REDNESS TO BILATERAL BUTTOCKS OPEN TO AIR WITH Z GUARD. PT HAS SCD'S IN PLACE. BED LOCKED IN LOWEST POSITION. SAFETY PRECAUTIONS IN PLACE. CALL LIGHT WITH IN REACH. WILL CONTINUE TO MONITOR. Addendum: 05/17/19 at 0231 by Susanna Leary RN NOTE ENTERED AT WRONG TIME
[2019-05-17] VITALS (24 sets, daily range): BP systolic 100–166
[2019-05-17] MEDS: 0.45% NACL 1,000 ML IV SCH (00:49)
--- NOTE | 2019-05-17 04:02 | NUR ---
RN UPDATE PT C/O PAIN TO NOSE. NG TUBE DISLODGED. NG TUBE REMOVED. WILL CONTINUE TO MONITOR.
[2019-05-17] MEDS: MORPHINE 2 MG/ML INJ. SYRINGE IVP PRN ×3 (04:32→14:49)
[2019-05-17 06:11] LABS: HEMATOCRIT 38.3 % (36-54); HEMOGLOBIN 12.3 g/dL (14.0-18.0); LYMPHOCYTES # (AUTO) 0.6 K/uL (1.0-5.5); LYMPHOCYTES % (AUTO) 4.2 % (20.5-51.5); MEAN CORPUSCULAR HEMOGLOBIN 31 pg (27-31); MEAN CORPUSCULAR HGB CONC 32 % (32-36); MEAN CORPUSCULAR VOLUME 98 fL (79.0-98.0); MONOCYTES # (AUTO) 0.4 K/uL (0.0-1.0); MONOCYTES % (AUTO) 3.2 % (1.7-9.3); NEUTROPHILS # (AUTO) 12.8 K/uL (1.8-7.7); NEUTROPHILS % (AUTO) 92.6 % (40.0-70.0); PLATELET COUNT (AUTO) 263 K/uL (130-430); RED BLOOD CELL COUNT(AUTO) 3.91 MIL/uL (4.2-6.2); RED CELL DISTRIBUTION WIDTH 13.7 % (9.0-15.0); WHITE BLOOD COUNT (AUTO) 13.9 K/uL (4.8-10.8)
--- NOTE | 2019-05-17 06:15 | NUR ---
RN UPDATE BLOOD SUGAR = 172. PT NPO. NO INSULIN WILL BE GIVEN. WILL CONTINUE TO MONITOR.
[2019-05-17 06:43] LABS: ALANINE AMINOTRANSFERASE 63 U/L (12-78); ALBUMIN 2.5 g/dL (3.4-4.8); ANION GAP 6 (5-15); CALCIUM 8.3 mg/dL (8.4-11.0); CHLORIDE 103 mmol/L (98-107); CREATININE 1.87 mg/dL (0.55-1.30); GLUCOSE 198 mg/dL (70-99); PHOSPHORUS 4.6 mg/dL (2.7-4.5); POTASSIUM 4.9 mmol/L (3.5-5.1); SODIUM SERUM 139 mmol/L (136-145); TOTAL BILIRUBIN 0.3 mg/dL (0.0-1.0); UREA NITROGEN, BLOOD 41 mg/dL (8-21)
[2019-05-17 06:58] LABS: ASPARTATE AMINOTRANSFERASE 44 U/L (10-37)
--- NOTE | 2019-05-17 07:13 | NUR ---
RECEIVED NURSING REPORT FROM COMMUNICATIONS SCIENTIST FRANKLIN Gonzales
[2019-05-17 07:23] LABS: ERYTHROCYTE SEDIMENTATION RATE 63 MM/HR (0-15)
--- NOTE | 2019-05-17 07:24 | NUR ---
PATIENT IS ALERT, CONFUSION, WAS PULLED OUT NG-TUBE BY HIMSELF AT 0400 A.M, ORDER NPO NOW AND HOLD INSULIN, WAITING FOR SWALLOW EVAL TODAY
--- NOTE | 2019-05-17 07:26 | NUR ---
CLOSING NOTE SBAR REPORT GIVEN TO RHODA ROMANO. PT IN NO APPARENT DISTRESS. CARE ENDORSED.
[2019-05-17] MEDS: IPRATROPIUM/ALBUTEROL SULFATE 3 ML AMPUL.NEB (DUONEB) INH SCH ×2 (07:48→20:01)
[2019-05-17] MEDS: INSULIN NPH/REGULAR 70-30, 100 UNITS/ML, 10 ML VIAL SUBCUT SCH ×2 (09:00→17:24)
[2019-05-17] MEDS: PREDNISONE 20 MG TABLET PO SCH ×2 (09:00→21:00)
[2019-05-17] MEDS: PANTOPRAZOLE SODIUM 40 MG/VIAL (PROTONIX) IVP SCH (09:09)
--- NOTE | 2019-05-17 09:20 | NUR ---
THE ABG RESULT : PH 3.16, PCO2 61.5, AT [address] WILLIAM ANDREWS
--- NOTE | 2019-05-17 09:36 | NUR ---
AT 0910 A.M, START SWALLOW EVAL AT BEDSIDE, PATIENT IS SHORT OF BREATH , RESPIRATORY RATE 31-35/MIN,DURING THE PROCEDURE, WAS FAILURE TO SWALLOW EVAL, ONLY ICE CHIP O.K, WAS REPORTED TO Dr. THOMAS AWARE,
--- NOTE | 2019-05-17 09:53 | NUR ---
ST SWALLOW EVALUATION EVALUATION COMPLETED AND D/W RN, , PT. PT AT ELEVATED RISK OF PULMONARY COMPROMISE FROM ASPIRATION 2/2 LENGTHY INTUBATION, AGE, TACHYPNEA AND CLINICAL S/S AIRWAY COMPROMISE. RECOMMEND CONT NPO WITH AMNH SMALL ICE CHIPS OK WITH SUPERVISION AND AFTER ORAL CARE ST WILL FOLLOW
[2019-05-17] MEDS ORDERED: IPRATROPIUM/ALBUTEROL SULFATE 3 ML AMPUL.NEB (DUONEB) INH PRN (10:30)
--- NOTE | 2019-05-17 11:04 | NUR ---
AFTER EXPLAINED, BUT PATIENT STILL REFUSED NG-TUBE X TWICE, VERBALIZED : I DON,T WANT IT, I DON,T NEED, SEE PATIENT, ORDERED KEEP NPO ( ICE CHIP IS O.K ) CHANGE IVF TO D5W/045% N.S , AND START ON CPAP FOR PATIENT, CPAP SETTING : I 12, E 5 ,BUR 14, FIO2 28 %, WAS NOTIFY HILDA Herrera
--- NOTE | 2019-05-17 11:09 | NUR ---
Dr. THOMAS ORDERED FOLLOW UP CBC, BMP, CHEST X-RAY, ABG IN A.M
[2019-05-17] MEDS: INSULIN REGULAR, HUMAN 100 UNITS/ML, 10 ML VIAL (humuLIN R) SUBCUT PRN ×2 (11:34→17:23)
[2019-05-17] MEDS: D5/0.45 NS 1,000 ML IV SCH (11:37)
--- NOTE | 2019-05-17 14:45 | NUR ---
Wound Evaluation: Wound Consult ordered for Low Dimitris Score. Patient evaluated for a low Dimitris score of 14. Patient was awake, alert, oriented and received in a Mike Bed with an IsoFlex KARON low air-loss mattress with low air-loss therapy initiated. Patient needs to be turned in bed. Recommend reposition patient side to side only every 2 hours with pillow support. Elevate, off-load and float bilateral heels with pillows. Offload pressure areas with pillows for pressure re-distribution. Perform skin care and monitor skin integrity Q shift. Use moisture barrier cream on moisture susceptible areas QID and PRN for soiling. Place patient on a low air-loss mattress. Skin assessment: 1. Left dorsal hand near styloid process: Skin tear. Visible skin tear area has yellow tissue. No odor, no drainage. Sravani-tear area intact. Surrounding tissue has ecchymosis. Skin tear measures 2.0 cm x 2.0 cm. Recommend: Cleanse skin tear with normal saline. Apply sure prep to sravani-tear area. Apply hydrogel to skin tear bed. Cover with non-adhesive foam dressing. Wrap with Anna wrap. Perform skin tear care daily, and as needed for dressing soiling or dislodgment. 2. Right dorsal hand near thumb: Skin tear. Visible skin tear area has pink tissue. No odor, no drainage. Sravani-tear area intact. Surrounding tissue has ecchymosis. Skin tear measures 3.9 cm x 1.1 cm. Recommend: Cleanse skin tear with normal saline. Apply sure prep to sravani-tear area. Apply oil emulsion dressing to skin tear bed. Cover with non-adhesive foam dressing. Wrap with Anna wrap. Perform skin tear care daily, and as needed for dressing soiling. 3. Bilateral Buttocks: Multiple blanchable red erythema areas. Recommend: Cleanse involved areas with mild soap and water. Pat dry. Apply moisture barrier cream to involved areas. Perform site care, qid and prn for soiling. 4. Right posterior trunk: Multiple non-blanchable red erythema areas, from fall at residence, present on admission. Recommend: Cleanse involved areas with mild soap and water. Pat dry. Apply moisture barrier cream to involved areas. Perform site care, qid and prn for soiling. 5. Bilateral upper extremities: Multiple scabs, present on admission. Recommend: No dressings needed. Continue to monitor sites every shift Recommend: Reposition patient side to side only every 2 hours with pillow support. Elevate, off-load and float bilateral heels with pillows. Offload pressure areas with pillows for pressure re-distribution. Perform skin care and monitor skin integrity Q shift. Use moisture barrier cream on moisture susceptible areas QID and PRN for soiling. Maintain patient on a low air-loss mattress.
[2019-05-17] MEDS ORDERED: FUROSEMIDE 20 MG/2 ML VIAL IVP ONE (15:45)
--- NOTE | 2019-05-17 16:21 | NUR ---
Called to page Dr. Briggs @ [phone] vaj [phone].
--- NOTE | 2019-05-17 16:23 | NUR ---
AT 1605 P.M, Dr. BERTRAND SEE PATIENT, AND UPDATED PATIENT,S CONDITION WITH FAMILY AT BEDSIDE
--- NOTE | 2019-05-17 16:35 | NUR ---
paged Dr. Lainey Briggs again at [phone].
[2019-05-17] MEDS: Liraglutide (Victoza 2-Pak) 1.8 MG SUBCUT SCH (17:27)
--- NOTE | 2019-05-17 17:52 | NUR ---
AT 1730 P.M,Dr. SINGH SEE PATIENT, ORDERED DOWN GRADE TO TELE STATUS
[2019-05-17 17:55] LABS: C-REACTIVE PROTEIN QUANT < 0.2 mg/dL (0-0.5)
--- NOTE | 2019-05-17 17:58 | NUR ---
Dr. SINGH ORDERED CONSULT Dr. NICOLE FOR DYSPHAGIA
--- NOTE | 2019-05-17 18:00 | NUR ---
GI consult called: for Dr. caldwell (Dr. Barrett travel trailer components assembler), regarding dysphagia, ordered by Dr. Briggs, spoke with Mandi.
--- NOTE | 2019-05-17 19:36 | NUR ---
GIVE COMPLETE NURSING REPORT TO HUMAN SERVICES PROGRAM SPECIALIST JENNIFER Gonzales
--- NOTE | 2019-05-17 19:38 | NUR ---
GIVE COMPLETE NURSING REPORT TO STABLE ATTENDANT YADI Gonzales Addendum: 05/17/19 at 1939 by Adam Davison RN WRONG PATIENT CHARTING
--- NOTE | 2019-05-17 19:50 | NUR ---
Opening Note Pt in bed Alert but confused at times. Pt able to answer questions and follow simple commands, makes needs known. SR on the monitor. Pt is on 1L NC, tolerating well, saturations in the mid-high 90s. Pt has LUNA PICC line in place running IVF. No s/s of infiltration noted, site is C/D/I. Pt has childers catheter in place draining urine to gravity. Skin issues noted. Pt being turned, but is also able to self turn. Pt has SCDs in place. Bed locked in lowest position, call light in reach, and safety precautions in place. Will continue to monitor.
--- NOTE | 2019-05-17 22:09 | NUR ---
Nursing Note Pt asked to be put on CPAP, PRN HS, but refused. Pt saturating in the mid-high 90s, with RR in the 20s. No s/s of distress noted. Pt denies any SOB. Will continue to monitor.
--- NOTE | 2019-05-17 23:00 | NUR ---
PT Transfer Pt transferred to Telemetry, Bed 104B. Pt transferred with equipment monitor phototypesetting attached. Pt tolerated well. Medications, belongings, and chart sent with Pt. Report given to ROSALINA Robb, at bedside via SBAR approach.
--- NOTE | 2019-05-17 23:05 | NUR ---
ASSUMPTION OF CARE RECEIVED CARE OF PT AND SBAR REPORT. PT IS AWAKE AND ALERT, CONFUSED, RESTING IN BED. BREATHING IS UNLABORED TO O2 VIA NC AT 1 LITER. NO SOB OR RESPIRATORY DISTRESS NOTED. PT IS ABLE TO FOLLOW COMMANDS. PT DENIES PAIN OR DISCOMFORT. IVF ARE INFUSING TO UPPER RIGHT MIDLINE AT ORDERED RATE. F/C IS INTACT AND DRAINING TO GRAVITY. SAFETY AND FALL PRECAUTIONS ARE IN PLACE: BED IS LOCKED IN LOWEST POSITION, SIDE RAILS UP X3, CALL LIGHT WITH PT, BED ALARM ON, CLOSE TO NURSES STATION. WILL MONITOR.
[2019-05-18] MEDS: D5/0.45 NS 1,000 ML IV SCH ×2 (00:31→16:35)
--- NOTE | 2019-05-18 00:31 | NUR ---
ACCUCHECK BLOOD SUGAR OF 88, NO INSULIN COVERAGE INDICATED PER SLIDING SCALE.
--- NOTE | 2019-05-18 02:35 | NUR ---
RN NOTE: PT RESTING IN BED WITH EYES CLOSED. VISIBLE SYMMETRICAL RISE AND FALL OF CHEST, BREATHING IS UNLABORED TO O2 VIA NC AT 1L. SKIN IS WARM AND DRY TO TOUCH. NO S/S OF ACUTE DISTRESS, NO SIGN OF PAIN, NO FACIAL GRIMACE. SCD'S ARE ATTACHED AND OPERATING. SAFETY AND FALL PRECAUTIONS REMAIN IN PLACE. CALL LIGHT IS WITH PT. WILL MONITOR.
--- NOTE | 2019-05-18 05:52 | NUR ---
ACCUCHECK BLOOD SUGAR OF 93, NO INSULIN COVERAGE INDICATED PER SLIDING SCALE.
--- NOTE | 2019-05-18 07:10 | NUR ---
AM rounds: Received patient asleep, breathing is non labored. On oxygen 1 li/min via nasal cannula. IVF of D5 1/2 NS at 70 cc/hr infusing on the right upper arm PICC line. Naqvi catheter with clear yellow urine output to a bedside drainage bag, no sediments noted. Bed alarm is on, call light within reach.
--- NOTE | 2019-05-18 07:18 | NUR ---
CLOSING NOTE PT IS AWAKE AND ALERT, CONFUSED, RESTING IN BED. BREATHING IS UNLABORED TO O2 VIA NC AT 1 LITER. NO SOB OR RESPIRATORY DISTRESS NOTED. PT IS ABLE TO FOLLOW COMMANDS. PT DENIES PAIN OR DISCOMFORT. IVF ARE INFUSING TO UPPER RIGHT MIDLINE AT ORDERED RATE. F/C IS INTACT AND DRAINING TO GRAVITY. SAFETY AND FALL PRECAUTIONS ARE IN PLACE: BED IS LOCKED IN LOWEST POSITION, SIDE RAILS UP X3, CALL LIGHT WITH PT, BED ALARM ON, CLOSE TO NURSES STATION. CARE ENDORSED TO DAY SHIFT RNHUSSEIN, FOR CONTINUITY OF CARE.
[2019-05-18 07:54] VITALS: BP_SYST 138
[2019-05-18 08:19] LABS: BASOPHILS % (AUTO) 0.1 % (0.0-2.0); EOSINOPHILS # (AUTO) 0.1 K/uL (0.0-0.4); EOSINOPHILS % (AUTO) 0.8 % (0.0-4.0); HEMATOCRIT 38.6 % (36-54); HEMOGLOBIN 12.5 g/dL (14.0-18.0); LYMPHOCYTES # (AUTO) 1.5 K/uL (1.0-5.5); LYMPHOCYTES % (AUTO) 15.2 % (20.5-51.5); MEAN CORPUSCULAR HEMOGLOBIN 32 pg (27-31); MEAN CORPUSCULAR HGB CONC 32 % (32-36); MEAN CORPUSCULAR VOLUME 98 fL (79.0-98.0); MONOCYTES % (AUTO) 9.8 % (1.7-9.3); NEUTROPHILS # (AUTO) 7.4 K/uL (1.8-7.7); NEUTROPHILS % (AUTO) 74.1 % (40.0-70.0); PLATELET COUNT (AUTO) 236 K/uL (130-430); RED BLOOD CELL COUNT(AUTO) 3.92 MIL/uL (4.2-6.2); RED CELL DISTRIBUTION WIDTH 13.5 % (9.0-15.0)
[2019-05-18] MEDS: PANTOPRAZOLE SODIUM 40 MG/VIAL (PROTONIX) IVP SCH (08:40)
[2019-05-18] MEDS: INSULIN NPH/REGULAR 70-30, 100 UNITS/ML, 10 ML VIAL SUBCUT SCH ×2 (08:44→18:00)
[2019-05-18] MEDS: PREDNISONE 20 MG TABLET PO SCH (08:44)
[2019-05-18 09:08] LABS: ALANINE AMINOTRANSFERASE 152 U/L (12-78); ALBUMIN 2.4 g/dL (3.4-4.8); ANION GAP 3 (5-15); ASPARTATE AMINOTRANSFERASE 80 U/L (10-37); CALCIUM 7.8 mg/dL (8.4-11.0); CHLORIDE 102 mmol/L (98-107); CREATININE 1.78 mg/dL (0.55-1.30); GLUCOSE 99 mg/dL (70-99); PHOSPHORUS 4.7 mg/dL (2.7-4.5); POTASSIUM 3.9 mmol/L (3.5-5.1); SODIUM SERUM 137 mmol/L (136-145); TOTAL BILIRUBIN 0.7 mg/dL (0.0-1.0); UREA NITROGEN, BLOOD 42 mg/dL (8-21)
[2019-05-18] MEDS ORDERED: CEFAZOLIN 1 GM IVPB PREMIX 50 ML IV ONE (09:15)
[2019-05-18] MEDS: IPRATROPIUM/ALBUTEROL SULFATE 3 ML AMPUL.NEB (DUONEB) INH SCH ×3 (09:28→20:25)
[2019-05-18 09:36] LABS: C-REACTIVE PROTEIN QUANT < 0.2 mg/dL (0-0.5)
[2019-05-18 11:15] VITALS: BP_SYST 137
[2019-05-18 11:17] LABS: ERYTHROCYTE SEDIMENTATION RATE 36 MM/HR (0-15)
[2019-05-18] MEDS ORDERED: methylPREDNISolone SOD SUCC 40 MG/ML VIAL IVP ONE (11:30)
--- NOTE | 2019-05-18 11:30 | NUR ---
MD rounds: Seen by Dr. Briggs and Dr. Ramsay. Orders noted.
--- NOTE | 2019-05-18 14:33 | NUR ---
TRISTEN COLLINS. LEFT A VOICE MESSAGE FOR KATIE. DIALED [phone]
--- NOTE | 2019-05-18 14:34 | NUR ---
Repeat Swallow Eval: Patient's requested repeat swallow eval, md aware. Left voice message with Maru.
--- NOTE | 2019-05-18 14:58 | NUR ---
MD notification: Informed Dr. Smith that patient's is refusing the PEG placement. Orders canceled.
[2019-05-18 15:02] VITALS: BP_SYST 138
[2019-05-18] MEDS: INSULIN REGULAR, HUMAN 100 UNITS/ML, 10 ML VIAL (humuLIN R) SUBCUT PRN ×2 (16:40→23:30)
[2019-05-18] MEDS: Liraglutide (Victoza 2-Pak) 1.8 MG SUBCUT SCH (18:00)
--- NOTE | 2019-05-18 18:15 | NUR ---
End of shift: Needs attended. No change in assessment. Call light within reach.
--- NOTE | 2019-05-18 19:30 | NUR ---
Opening notes Received report. Patient is resting in bed, no signs of distress noted. Breathing even and unlabored on 1 L NC. PICC line patent and intact, infusing fluids. Naqvi catheter in place.VSS. No needs at this time. Call light with the patient. Safety precautions in place.
[2019-05-18 20:27] VITALS: BP_SYST 129
[2019-05-18] MEDS: methylPREDNISolone SOD SUCC 40 MG/ML VIAL IVP SCH (21:25)
--- NOTE | 2019-05-18 21:45 | NUR ---
Medications/PICC line dressing change given. Educated the action and side effects of medications. Patient verbalized understanding and tolerated well. Patient turned and reposition. PICC line dressing changed. Patient tolerated well. No other needs. Call light with the patient. Safety precautions in place.
--- NOTE | 2019-05-18 23:30 | NUR ---
Accucheck 162 Insulin not given due to patient being NPO. Patient turned and repositioned. No other needs. Call light with the patient. Safety precautions in place.
[2019-05-19 00:27] VITALS: BP_SYST 128
--- NOTE | 2019-05-19 02:29 | NUR ---
Resting Patient in and out of sleep. Patient coughed out yellowish thick sputum. Patient states feels better. No other needs. Call light with the patient. Safety precautions in place.
--- NOTE | 2019-05-19 04:28 | NUR ---
Sleeping No signs of distress noted. Breathing even and unlabored on 1 L NC. Call light with the patient. Safety precautions in place.
[2019-05-19] MEDS: D5/0.45 NS 1,000 ML IV SCH (05:57)
[2019-05-19] MEDS: INSULIN REGULAR, HUMAN 100 UNITS/ML, 10 ML VIAL (humuLIN R) SUBCUT PRN ×3 (05:58→16:56)
[2019-05-19 06:32] LABS: BASOPHILS % (AUTO) 0.1 % (0.0-2.0); HEMATOCRIT 37.5 % (36-54); HEMOGLOBIN 12.1 g/dL (14.0-18.0); LYMPHOCYTES % (AUTO) 11.2 % (20.5-51.5); MEAN CORPUSCULAR HEMOGLOBIN 32 pg (27-31); MEAN CORPUSCULAR HGB CONC 32 % (32-36); MEAN CORPUSCULAR VOLUME 98 fL (79.0-98.0); MONOCYTES # (AUTO) 0.5 K/uL (0.0-1.0); MONOCYTES % (AUTO) 5.2 % (1.7-9.3); NEUTROPHILS # (AUTO) 7.6 K/uL (1.8-7.7); NEUTROPHILS % (AUTO) 83.5 % (40.0-70.0); PLATELET COUNT (AUTO) 248 K/uL (130-430); RED BLOOD CELL COUNT(AUTO) 3.82 MIL/uL (4.2-6.2); RED CELL DISTRIBUTION WIDTH 13.4 % (9.0-15.0); WHITE BLOOD COUNT (AUTO) 9.1 K/uL (4.8-10.8)
--- NOTE | 2019-05-19 06:33 | NUR ---
Repeat Swallow Eval. LEFT A VOICE MESSAGE FOR KATIE. DIALED [phone]
[2019-05-19 06:44] LABS: ANION GAP 4 (5-15); CALCIUM 7.7 mg/dL (8.4-11.0); CHLORIDE 105 mmol/L (98-107); CREATININE 1.66 mg/dL (0.55-1.30); GLUCOSE 206 mg/dL (70-99); PHOSPHORUS 3.7 mg/dL (2.7-4.5); POTASSIUM 4.4 mmol/L (3.5-5.1); SODIUM SERUM 142 mmol/L (136-145); UREA NITROGEN, BLOOD 33 mg/dL (8-21)
--- NOTE | 2019-05-19 06:57 | NUR ---
Closing notes Patient is resting in bed, no signs of distress noted. Breathing even and unlabored. PICC line patent and intact, no signs of infiltration noted. Naqvi catheter in place, draining urine. All needs met throughout the shift. Call light with the patient. Safety precautions in place. Will endorse care to day shift RN.
--- NOTE | 2019-05-19 07:25 | NUR ---
MA ROUNDS: PATIENT RESTING DURING ROUNDS. ORIENTED TO CALL LIGHT. BED LOCKED AT LOWEST POSITION. BED ALARM ON LUNA PICC LINE,DRESSING CLEAN AND DRY. IVF ON GOING. BILATERAL SCD,S ON LE. STABLE. Addendum: 05/19/19 at 0808 by Jacquelyn Hill RN CORRECTED NOTES:CORRECT WORDS -AM ROUNDS.
[2019-05-19] MEDS: IPRATROPIUM/ALBUTEROL SULFATE 3 ML AMPUL.NEB (DUONEB) INH SCH ×3 (07:34→21:41)
[2019-05-19 08:51] VITALS: BP_SYST 104
[2019-05-19] MEDS: INSULIN NPH/REGULAR 70-30, 100 UNITS/ML, 10 ML VIAL SUBCUT SCH ×2 (09:00→16:55)
[2019-05-19] MEDS: PANTOPRAZOLE SODIUM 40 MG/VIAL (PROTONIX) IVP SCH (09:01)
[2019-05-19] MEDS: methylPREDNISolone SOD SUCC 40 MG/ML VIAL IVP SCH ×2 (09:01→21:15)
--- NOTE | 2019-05-19 10:30 | NUR ---
RN ROUNDS: PATIENT SITTING ON TH CHAIR.HUB LEAD AT THE BEDSIDE. STABLE.
--- NOTE | 2019-05-19 11:46 | NUR ---
BLOOD SUGAR: BLOOD SUGAR =174MG/DL,HUMULIN R 2 UNITS SUBQ GIVEN PER SLIDING SCALE. NO PROBLEM. PATIENT STABLE.WITH IVF ON GOING.NPO ,FOR REPEAT SWALLOWING EVALUATION TODAY PER 'S REQUEST ORDERED.
[2019-05-19 12:00] VITALS: BP_SYST 145
--- NOTE | 2019-05-19 14:25 | NUR ---
Rn Rounds: Resting. Still waiting for the speech therapist to do a repeat swallowing evaluation. No distress.
--- NOTE | 2019-05-19 16:37 | NUR ---
S.T. SWALLOW EVAL CLARIFIED S.T. ORDER W/ CHARGE NURSE MAGALY. ORDER IS FOR SWALLOW EVAL. EVAL COMPLETED. PT PRESENTS W/ FUNCTIONAL OROPHARYNGEAL SWALLOW W/ NO S/S OF ASPIRATION. REC: MECH SOFT CHOPPED DIET. THIN LIQUIDS OK. SLOW EATING. NO DISTRACTIONS. PT AND VERBALIZED UNDERSTANDING OF RESULTS AND REC. NURSE SLIME NOTIFIED. G8996 CI G8997 CI G8998 CI NOMS LEVEL 6
[2019-05-19] MEDS: Liraglutide (Victoza 2-Pak) 1.8 MG SUBCUT SCH (16:50)
--- NOTE | 2019-05-19 17:01 | NUR ---
BLOOD SUGAR: BLOOD SUSMK=120SC/DL,HUMULIN R 4 UNITS SUBQ AND HUMULIN 70/30 20 UNITS SUBQ ROUTINE GIVEN ORDERED.
--- NOTE | 2019-05-19 17:03 | NUR ---
ADDED NOTES: NO ADVERSE REACTIONS NOTED.
[2019-05-19 17:16] VITALS: BP_SYST 133
--- NOTE | 2019-05-19 18:38 | NUR ---
END OF SHIFT: PATIENT HAD DINNER,MECHANICAL SOFT FINELY CHOPPED ,TOLERATED. AND SON JUST LEFT THE ROOM. CALL LIGHT WITH IN REACH. BED LOCKED AT LOWEST POSITION. SAFETY MEASURES RENDERED. NO ACUTE DISTRESS.
--- NOTE | 2019-05-19 19:30 | NUR ---
Opening notes Received report. Patient was assisted to bedside commode to have BM. Patient was unsteady on feet. For safety precautions, informed patient to use bedpan until he feels much stronger and gets more physical therapy. Patient verbalized understanding. PICC line patent and intact, saline locked. Call light with the patient. Safety precautions in place.
[2019-05-19 20:00] VITALS: BP_SYST 134
--- NOTE | 2019-05-19 21:15 | NUR ---
Medications given. Educated the action and side effects of medications. Patient verbalized understanding and tolerated well. No adverse effects noted. Patient repositioned. No other needs. Call light with the patient. Safety precautions in place.
[2019-05-20 00:10] VITALS: BP_SYST 155
--- NOTE | 2019-05-20 00:17 | NUR ---
Accucheck 99 No insulin required. Patient repositioned to comfort. No other needs. Call light with the patient. Safety precautions in place.
--- NOTE | 2019-05-20 02:32 | NUR ---
Sleeping Patient is sleeping. No signs of distress noted. Breathing even and unlabored. No needs. Call light with the patient. Safety precautions in place.
--- NOTE | 2019-05-20 04:30 | NUR ---
Resting Patient resting in bed. No signs of distress noted. Breathing even and unlabored. Patient forgetful at times. Easily reoriented. No needs. Call light with the patient. Safety precautions in place.
[2019-05-20] MEDS: INSULIN REGULAR, HUMAN 100 UNITS/ML, 10 ML VIAL (humuLIN R) SUBCUT PRN (05:45)
--- NOTE | 2019-05-20 06:51 | NUR ---
Closing notes Patient watching TV. No signs of distress noted. Breathing even and unlabored. PICC patent and intact, no signs of infiltration noted. Accucheck 159. Insulin given per sliding scale. Naqvi catheter in place, draining urine. All needs met throughout the shift. Call light with the patient. Safety precautions in place. Will endorse care to day shift RN.
[2019-05-20 07:50] VITALS: BP_SYST 153
[2019-05-20 07:58] LABS: HEMOGLOBIN 12.6 g/dL (14.0-18.0); LYMPHOCYTES # (AUTO) 1.6 K/uL (1.0-5.5); LYMPHOCYTES % (AUTO) 13.3 % (20.5-51.5); MEAN CORPUSCULAR HEMOGLOBIN 32 pg (27-31); MEAN CORPUSCULAR HGB CONC 32 % (32-36); MEAN CORPUSCULAR VOLUME 98 fL (79.0-98.0); MONOCYTES # (AUTO) 0.6 K/uL (0.0-1.0); MONOCYTES % (AUTO) 5.3 % (1.7-9.3); NEUTROPHILS # (AUTO) 9.7 K/uL (1.8-7.7); NEUTROPHILS % (AUTO) 81.4 % (40.0-70.0); PLATELET COUNT (AUTO) 269 K/uL (130-430); RED BLOOD CELL COUNT(AUTO) 3.98 MIL/uL (4.2-6.2); RED CELL DISTRIBUTION WIDTH 13.2 % (9.0-15.0); WHITE BLOOD COUNT (AUTO) 11.9 K/uL (4.8-10.8)
--- NOTE | 2019-05-20 08:00 | NUR ---
am notes received pt in bed. a/ox3. denies any pain at this time. vitals stable. not in acute distress. safety and fall precautions maintained. hob elevated. needs attended. nona picc line patent 2 ports. good blood return noted. will continue to monitor
[2019-05-20 08:22] LABS: ALANINE AMINOTRANSFERASE 147 U/L (12-78); ALBUMIN 2.8 g/dL (3.4-4.8); ANION GAP 4 (5-15); CALCIUM 8.1 mg/dL (8.4-11.0); CHLORIDE 106 mmol/L (98-107); CREATININE 1.74 mg/dL (0.55-1.30); GLUCOSE 190 mg/dL (70-99); POTASSIUM 4.3 mmol/L (3.5-5.1); SODIUM SERUM 140 mmol/L (136-145); TOTAL BILIRUBIN 0.4 mg/dL (0.0-1.0); UREA NITROGEN, BLOOD 32 mg/dL (8-21)
[2019-05-20] MEDS: methylPREDNISolone SOD SUCC 40 MG/ML VIAL IVP SCH (08:41)
[2019-05-20] MEDS: PANTOPRAZOLE SODIUM 40 MG/VIAL (PROTONIX) IVP SCH (08:41)
[2019-05-20 08:47] LABS: ASPARTATE AMINOTRANSFERASE 31 U/L (10-37)
[2019-05-20] MEDS: INSULIN NPH/REGULAR 70-30, 100 UNITS/ML, 10 ML VIAL SUBCUT SCH ×2 (09:01→18:07)
[2019-05-20] MEDS: IPRATROPIUM/ALBUTEROL SULFATE 3 ML AMPUL.NEB (DUONEB) INH SCH ×3 (09:36→20:08)
[2019-05-20 11:39] VITALS: BP_SYST 134
--- NOTE | 2019-05-20 12:00 | NUR ---
rounds sitting in chair. resting comfortably. vitals stable. earlier walked with pt. direct care provider at anup side. not in acute distress. will continue to monitor
[2019-05-20 15:43] VITALS: BP_SYST 139
--- NOTE | 2019-05-20 15:50 | NUR ---
rounds pt stable. resting comfortably. vitals stable. denies any pain or orther discomfort. not in acute distress. will continue to monitor
--- NOTE | 2019-05-20 16:28 | NUR ---
Discharge Planning Received order for discharge planning to [facility] inpatient rehab or SNF. Faxed patient's information to [facility] p [phone], f [phone] at 16:30 for evaluation. Addendum: 05/20/19 at 1657 by Yanely Villanueva LCSW Met with patient at bedside who stated his makes all his decisions. Phoned Liliam Boyle, . [facility] is the first choice for placement. Patient was there two years ago for inpatient rehab and had a year of outpatient rehab after that. Second choice is [facility], p [phone], f [phone]. Faxed the information at 17:00.
--- NOTE | 2019-05-20 17:06 | NUR ---
Nutrition F/U A: RD reviewed pt's current EMR record including diet Hx, physician notes, nursing notes, pertinent labs/meds/procedures, care trends, and care activity. Admission Dx: CHF, pneumonia Pt also found w/ acute respiratory failure, leukocytosis, septic shock per physician notes PMH: renal CA, skin CA, COPD, DM, dyslipidemia per physician note Food allergy: Peanuts, iodine Current Diet Order/Nutrition Support: Mechanical soft, finely chopped x1 day Ht: 5'9"/69" Wt: 193#/88 kg (05/16/19); 202#/92 kg (05/20/19) -- possibly altered d/t fluid fluctuations associated w/ CHF BMI: 28.6 kg/m2 (overweight, but appropriate for geriatric age) %IBW: 121 IBW: 160#/73 kg Subjective info: Pt was seen resting in bed w/ caregiver present at bedside. Pt reported "so-so" appetite, and stated that his appetite depends on how appetizing the foods look at any given time. Pt was seen by ST for swallow eval 05/19/19; at which time, ST recommended mechanical soft, chopped fiet w/ thin liquids, slow eating, and no distractions. Pt reported that he has been able to tolerate current diet. RD encouraged pt to continue to increase PO intakes for adequate nutrition. Per EMR, only one PO intake record noted -- 100% x1 meal. Pt's BG levels were elevated today -- BG 190 mg/dl. Pt is no longer receiving En support via NGT. Nutrition education not indicated. ESTIMATED NUTRITIONAL REQUIREMENTS NEW CALORIES/DAY: 6501-8933 kcal/day (30-35 kcal/kg IBW for sepsis) PROTEIN/DAY: 106-176 gm/day (1.2-2 gm/kg CBW for sepsis, COPD, CA) NEW FLUID/DAY: Per physician d/t CHF D: Inadequate nutrient intake r/t no diet order AEB NPO x 2 days and no order for nutrition support. *no longer applicable -- pt is meeting estimated nutritional needs w/ TF Inadequate EN intake r/t EN formula concentration AEB Glucerna 1.2 provides <70% of est needs. *no longer applicable Increased nutritional needs related to metabolic demands as evidenced by estimated nutritional requirements for sepsis, COPD, and CA. I: Recommend CCHO, mechanical soft, finely chopped diet. Encourage increase PO intakes. M: Monitor EN tolerance and intake w/ goal of pt meeting at least 75% of estimated nutritional needs, labs trending WNL, normal GI function, skin integrity/wt maintenance. E: Moderate risk; F/U within 3-5 days Addendum: 05/20/19 at [address] CORRECTION: D: Inadequate nutrient intake r/t no diet order AEB NPO x 2 days and no order for nutrition support. *no longer applicable -- pt is meeting estimated nutritional needs w/ TF Inadequate EN intake r/t EN formula concentration AEB Glucerna 1.2 provides <70% of est needs. *no longer applicable Increased nutritional needs related to metabolic demands as evidenced by estimated nutritional requirements for sepsis, COPD, and CA. I: Recommend CCHO, mechanical soft, chopped diet. Encourage increase PO intakes.
--- NOTE | 2019-05-20 17:12 | NUR ---
Dietitian Recommendations * Recommend CCHO, mechanical soft, chopped diet. Encourage increase PO intakes. LP, RD Please refer to Nutrition F/U for details.
--- NOTE | 2019-05-20 17:28 | NUR ---
Discharge Planning: DCP received call from Kassidy ([phone] Cell) from [facility], p [phone], f [phone],this is choice #2, [facility] is first choice pt has history there.
[2019-05-20] MEDS: Liraglutide (Victoza 2-Pak) 1.8 MG SUBCUT SCH (18:11)
--- NOTE | 2019-05-20 19:16 | NUR ---
closing notes pt stable. resting comfortably. vitals stable. denies any pain or orther discomfort. not in acute distress. safety and fall precautions in place..report endorsed to night nurse
[2019-05-20 20:00] VITALS: BP_SYST 149
--- NOTE | 2019-05-20 20:00 | NUR ---
ASSUMED CARE. RECEIVED ALERT,ORIENTED,VERBALLY RESPONSIVE. AFEBRILE, NOT IN ACUTE DISTRESS. DENIES ANY PAIN OR DISCOMFORT. SAO2=98% ON ROOM AIR. SINUS RHYTHM AT 70-80'S/MINUTE ON THE MONITOR. PICC LINE TO THE RIGHT UPPER ARM DOUBLE LUMEN INTACT. MARINELLI CATHETER DRAINING CLEAR YELLOW URINE. BILATERAL SCD'S IN PLACE. VS STABLE, WILL CONTINUE TO MONITOR. NEEDS ATTENDED.
[2019-05-20] MEDS: PREDNISONE 10 MG TABLET PO SCH (20:43)
--- NOTE | 2019-05-20 20:43 | NUR ---
DUE MEDICATION GIVEN SCHEDULED.
[2019-05-21] VITALS (7 sets, daily range): BP systolic 131–157
--- NOTE | 2019-05-21 00:03 | NUR ---
ASLEEP, NOT IN ANY KIND OF DISTRESS. NO PAIN OR DISCOMFORT NOTED. FINGERSTICK BLOOD SUGAR CHECK=93. NO INSULIN COVERAGE GIVEN. SIDE RAILS UP, CALL LIGHT WITHIN REACH. KEPT WARM AND COMFORTABLE. VS REMAIN STABLE.
--- NOTE | 2019-05-21 04:00 | NUR ---
AWAKE, NOT IN ACUTE DISTRESS. NO PAIN OR DISCOMFORT NOTED. WILL CONTINUE TO MONITOR. NEEDS ATTENDED.
--- NOTE | 2019-05-21 06:26 | NUR ---
FINGERSTICK BLOOD SUGAR HMNCD=[id number]. NO INSULIN COVERAGE NEEDED.
--- NOTE | 2019-05-21 07:18 | NUR ---
ENDORSED CARE TO ALIN ROMANO STABLE VIA WRITTEN REPORT AND SBAR.
[2019-05-21 08:28] LABS: BASOPHILS % (AUTO) 0.1 % (0.0-2.0); EOSINOPHILS % (AUTO) 0.4 % (0.0-4.0); HEMATOCRIT 40.1 % (36-54); HEMOGLOBIN 12.8 g/dL (14.0-18.0); LYMPHOCYTES # (AUTO) 1.4 K/uL (1.0-5.5); LYMPHOCYTES % (AUTO) 13.4 % (20.5-51.5); MEAN CORPUSCULAR HEMOGLOBIN 31 pg (27-31); MEAN CORPUSCULAR HGB CONC 32 % (32-36); MEAN CORPUSCULAR VOLUME 98 fL (79.0-98.0); MONOCYTES # (AUTO) 0.6 K/uL (0.0-1.0); MONOCYTES % (AUTO) 5.4 % (1.7-9.3); NEUTROPHILS # (AUTO) 8.3 K/uL (1.8-7.7); NEUTROPHILS % (AUTO) 80.7 % (40.0-70.0); PLATELET COUNT (AUTO) 259 K/uL (130-430); RED BLOOD CELL COUNT(AUTO) 4.09 MIL/uL (4.2-6.2); RED CELL DISTRIBUTION WIDTH 13.7 % (9.0-15.0); WHITE BLOOD COUNT (AUTO) 10.3 K/uL (4.8-10.8)
[2019-05-21 08:46] LABS: ANION GAP 3 (5-15); CALCIUM 8.1 mg/dL (8.4-11.0); CHLORIDE 107 mmol/L (98-107); CREATININE 1.68 mg/dL (0.55-1.30); GLUCOSE 147 mg/dL (70-99); PHOSPHORUS 2.6 mg/dL (2.7-4.5); SODIUM SERUM 142 mmol/L (136-145); UREA NITROGEN, BLOOD 29 mg/dL (8-21)
[2019-05-21] MEDS: INSULIN NPH/REGULAR 70-30, 100 UNITS/ML, 10 ML VIAL SUBCUT SCH (09:07)
[2019-05-21] MEDS: PREDNISONE 10 MG TABLET PO SCH (09:08)
[2019-05-21] MEDS: PANTOPRAZOLE SODIUM 40 MG/VIAL (PROTONIX) IVP SCH (09:08)
[2019-05-21] MEDS: IPRATROPIUM/ALBUTEROL SULFATE 3 ML AMPUL.NEB (DUONEB) INH SCH ×2 (09:29→15:09)
--- NOTE | 2019-05-21 11:32 | NUR ---
DCP Follow- Up: CASCARA BARK CUTTER met with Pat tree trimmer nurse from [facility], client has been accepted to first choice [facility] , is agreeable with this facility. Pt. has available room in [facility] Room 1232 A [phone] at any available time. DC order from is pending notified charge nurse. Transportation will need to be arranged once order is received.
--- NOTE | 2019-05-21 11:54 | NUR ---
DC order from MD is pending notified assigned nurse. Transportation will need to be arranged once order is received.
[2019-05-21] MEDS ORDERED: PRED10TA PO (12:35)
--- NOTE | 2019-05-21 14:45 | NUR ---
ARRANGED WITH [facility] TRANSFER TO [facility], RM 1232A. INSPECTOR SOLDERING TIME IS 1600. SPOKE TO VETO.
--- NOTE | 2019-05-21 16:45 | NUR ---
Patient discharged to [facility] at 1600 with PICC line and Naqvi catheter intact and patent. He denies pain, shortness of breath or discomfort at this time. Report given to EMT's at bedside and report given to Ephraim, Licensed Nurse at [facility]. patients home medications retrieved from pharmacy and transferred with patient. Spouse is aware of transfer today.
[2019-05-22 17:52] LABS: COCCIDIOIDES AB COMPLEMENT FIX Negative (NEGATIVE)
[2019-05-22 18:05] LABS: MYCOPLASMA PNEUMONIAE IgM <770
--- NOTE | 2019-05-30 14:22 | NUR ---
PHYSICAL THERAPY CO-SIGN The Physical Therapy Progress Notes documented by Make Ready Worker have been reviewed. Reviewed/Co-Signed by: Charles Wiley PT Documentation Done by: MARY WILSON PTA Addendum: 05/30/19 at 1424 by Charles Wiley PT Amended: Links added.
--- NOTE | 2019-05-30 14:23 | NUR ---
PHYSICAL THERAPY CO-SIGN The Physical Therapy Progress Notes documented by Rug Sizer have been reviewed. Reviewed/Co-Signed by: Charles Wiley PT Documentation Done by: MARY WILSON PTA Addendum: 05/30/19 at 1424 by Charles Wiley PT Amended: Links added.
== END 2019-05-21 16:15 | DRG 870 ==
LOC: SED 12:30 → STU 14:51 → SIC 22:09 → STU 05-17 23:09
PROVIDERS: ADMIT Preventive Medicine Preventive Medicine/Occupational Environmental Medicine; ATTEND Preventive Medicine Preventive Medicine/Occupational Environmental Medicine
PROC: 5A1955Z Respiratory Ventilation, Greater than 96 Consecutive Hours (ICD-10-PCS; principal; 2019-05-09)
PROC: 0BH17EZ Insertion of Endotracheal Airway into Trachea, Via Natural or Artificial Opening (ICD-10-PCS; 2019-05-09)
PROC: 02HV33Z Insertion of Infusion Device into Superior Vena Cava, Percutaneous Approach (ICD-10-PCS; 2019-05-11)
PROC: B548ZZA Ultrasonography of Superior Vena Cava, Guidance (ICD-10-PCS; 2019-05-11)
DX: A41.9 Sepsis, unspecified organism (principal); J18.9 Pneumonia, unspecified organism; E43 Unspecified severe protein-calorie malnutrition; R65.21 Severe sepsis with septic shock; J96.01 Acute respiratory failure with hypoxia; J44.0 Chronic obstructive pulmonary disease with (acute) lower respiratory infection; N17.9 Acute kidney failure, unspecified; E87.1 Hypo-osmolality and hyponatremia; E87.2 Acidosis; I13.0 Hypertensive heart and chronic kidney disease with heart failure and stage 1 through stage 4 chronic kidney disease, or unspecified chronic kidney disease; Z99.11 Dependence on respirator [ventilator] status; D64.9 Anemia, unspecified; E11.22 Type 2 diabetes mellitus with diabetic chronic kidney disease; E11.65 Type 2 diabetes mellitus with hyperglycemia; E78.5 Hyperlipidemia, unspecified; E83.39 Other disorders of phosphorus metabolism; E87.5 Hyperkalemia; G89.29 Other chronic pain; M62.89 Other specified disorders of muscle; M81.0 Age-related osteoporosis without current pathological fracture; E83.41 Hypermagnesemia; K21.9 Gastro-esophageal reflux disease without esophagitis; N18.9 Chronic kidney disease, unspecified; R13.10 Dysphagia, unspecified; E83.51 Hypocalcemia; R62.7 Adult failure to thrive; I50.9 Heart failure, unspecified; Z85.828 Personal history of other malignant neoplasm of skin; Z85.528 Personal history of other malignant neoplasm of kidney; Z85.3 Personal history of malignant neoplasm of breast; Z85.46 Personal history of malignant neoplasm of prostate; Z91.041 Radiographic dye allergy status; Z91.010 Allergy to peanuts; Z91.19 Patient's noncompliance with other medical treatment and regimen
CPT/HCPCS: 36415; 36600; 70450-TC; 71045; 71250-TC; 76700-TC; 76770; 80048; 80053; 81000-TC; 82550-TC; 82803-TC; 82947-TC; 82962; 83605; 83690-TC; 83735-TC; 83880; 84100-TC; 84484; 85007; 85025; 85027; 85610-TC; 85651-TC; 85730-TC; 86140; 86635; 86710; 86738; 87040-TC; 87070-TC; 87081; 87205-TC; 87449; 92610-GN; 93005; 93306; 94002; 94003; 94640; 94668; 94760; 96365; 96367; 96375; 97110-GP; 97116-GP; 97530-GP; 99285; C1751; C9113; G0378; G9035; J0456; J0690; J0696; J1030; J1815; J1940; J2060; J2270; J2704; J3480; J3490; J7050; J7060; J7512; J7620; Q0144